=== PATIENT | female | born 2000 | race Caucasian/White ===

== ENCOUNTER → 2025-06-09 | Outpatient (CLI) | payer OTHER, SELFPAY ==
[2025-06-12 19:08] LABS: Chlamydia By Nucleic Acid AMP Negative (Negative); Gonococcus By Nucleic Acid AMP Negative (Negative)
== END | disposition home or self-care (01) ==
LOC: LABSPEC 16:25
PROVIDERS: Visit Provider Advanced Practice Midwife
DX: Z34.90 Encounter for supervision of normal pregnancy, unspecified, unspecified trimester (principal)
CPT/HCPCS: 87077; 87086; 87088; 87186; 87491; 87591

== ENCOUNTER → 2025-07-06 | Outpatient (CLI) | payer OTHER, SELFPAY ==
[2025-07-06 17:27] LABS: Hematocrit 37.1 % (37-47); Hemoglobin 13.2 g/dL (12.0-15.0); Immature Granulocytes Count 0.030 X10^3/uL (0.0-0.0); Mean Corp Hgb Conc 35.6 g/dL (32-36); Mean Corpuscular Volume 89.6 fL (81-99); Mean Platelet Vol. 9.6 fl (6.2-12.0); NRBC Flagged by Analyzer 0 % (0-5); Platelet Count 261 K/mm3 (150-450); RBC Distribution Width CV 12.6 % (11.6-14.6); RBC Distribution Width SD 40.9 fl (35.1-43.9); Red Blood Count 4.14 M/mm3 (4.2-5.4); White Blood Count 9.4 K/mm3 (4.4-11.0)
[2025-07-06 18:00] LABS: HIV Nonreactive (Nonreactive); Hepatitis B Surface Antigen Nonreactive (Nonreactive); Hepatitis C Antibody Nonreactive (Nonreactive); Syphilis Antibodies Nonreactive (Nonreactive)
== END | disposition home or self-care (01) ==
LOC: LAB 16:55
PROVIDERS: Referring Provider Advanced Practice Midwife; Visit Provider Advanced Practice Midwife
DX: Z34.01 Encounter for supervision of normal first pregnancy, first trimester (principal)
CPT/HCPCS: 36415; 83036; 85025; 86703; 86762; 86780; 86803; 86850; 86900; 86901; 87340

== ENCOUNTER → 2025-08-28 | Outpatient (CLI) | payer OTHER, SELFPAY | END | disposition home or self-care (01) | LOC: LABSPEC 16:23 | PROVIDERS: Visit Provider Advanced Practice Midwife | DX: O23.40 Unspecified infection of urinary tract in pregnancy, unspecified trimester (principal); Z3A.00 Weeks of gestation of pregnancy not specified | CPT/HCPCS: 87086; 87088 ==

== ENCOUNTER → 2025-10-20 | Outpatient (CLI) | payer OTHER, SELFPAY ==
--- OUTSIDE RECORDS SUMMARY | 2025-10-20 09:40 | XMS RPT_ITS | CCD ---
Author Organization [facility] Care Team Providers Care Precipitate Washer Name Role Phone Unavailable Primary Care Provider UnavailKelly Montgomery MD Primary Care Provider [phone] ME VICTOR HUGOHRDAThomas Mota Referring Unavailable TAVALLAEE KELLY Svetlana Primary Care Unavailable BRIANEKELLY Attending Unavailable KELLY GAY Attending Unavailable KELLY GAY Primary Care Unavailable ROSELYN SANTOS Attending Unavailable TAVALLAEBerlin KELLY Svetlana Primary Care Unavailable TAVALLYANETE KELLY Svetlana Attending Unavailable TAVALLNICA KELLY M Primary Care Unavailable RAJEEVALLYANETE KELLY M Attending Unavailable TAVAMY KELLY M Primary Care Unavailable TAVALLYANETE KELLY Svetlana Attending Unavailable TAVQIE KELLY Svetlana Primary Care Unavailable Kenya Morrison CNM Attending Provider Dr. Mayra Geiger MD Attending Provider Kenya Morrison CNM Attending Physician [phone] Mayra Geiger MD Attending Physician Kenya Morrison CNM Referring Provider [phone] Dr. Mercedes Fairbanks DO Attending Physician Kenya Morrison Attending Unavailable Kenya Morrison Attending Unavailable Kenya Morrison Referring Unavailable Kenya Morrison Attending Unavailable Mayra Geiger Attending Unavailable Mercedes Fairbanks Attending Unavailjosiah e Kenya Morrison Attending Unavailable Kenya Morrison Attending Unavailable Kenya Morrison Attending Unavailable NO PRIMARY MD KILLIAN Primary Care Unavailable MAYRA GEIGER Attending MAYRA Gonsalves Referring Ole[facility], Primary Care Unavailable MAYRA GEIGER Referring GREGORY Marx Attending Unavailable Medications Current Medications Medication Drug Class(es) Dates Sig (Normalized) Sig (Original) doxylamine succinate 25 mg oral tablet (6 sources) Start: 5 take 1 tablet by mouth every six hours as needed Doxylamine Succinate (Unisom (Doxylamine)) 25 mg tablet Active 25 mg PO EVERY 6 HOURS as needed June 02, 2025 12:00am Complies with drug therapy methylPREDNISolone (3 sources) Corticosteroid Start: 4 methylPREDNISolone (Medrol Dospak) 4 mg tablets Indications: Acute laryngitis , Acute cough , Acute pharyngitis, unspecified etiology Follow schedule on package instructions 21 tablet 03/01/2024 Active Multivit 37-Nrsm-Laxgbu 1-Dha (Pnv-Dha) 27 mg iron-1 mg -300 mg capsule (6 sources) Start: 5 Multivit 02-Zskb-Wwhzjf 1-Dha (Pnv-Dha) 27 mg iron-1 mg -300 mg capsule Active NMA PO June 02, 2025 12:00am Complies with drug therapy Start: 06-02-2025 Start: 06-02-2025 Multivit 47-Ir on-Folate 1-Dha (Pnv-Dha) 27 mg iron-1 mg -300 mg capsule Active NMA PO June 02, 2025 12:00am phentermine hydrochloride 37.5 mg oral tablet (7 sources) Sympathomimetic Amine Anorectic Start: 01-20-2024 End: 05-20-2024 take 31-31.9 tablets by mouth once daily before mealtime phentermine (Adipex-P) 37.5 mg tablet Indications: Class 1 obesity due to excess calories without serious comorbidity with body mass index (BMI) of 31.0 to 31.9 in adult Take 1 tablet (37.5 mg) by mouth once daily in the morning. Take before meals. 30 tablet 04/20/2024 05/20/2024 Active predniSONE 10 mg oral tablet (1 source) Start: 03-16-2024 End: 03-23-2024 predniSONE (Deltasone) 10 mg tablet PLEASE SEE ATTACHED FOR DETAILED DIRECTIONS 03/16/2024 03/23/2024 Discontinued (Side effects) vitamin b6 10 mg oral tablet (6 sources) Start: 06-02-2025 take 1 tablet by mouth once daily Pyridoxine (Vitamin B6) 10 mg tablet Active 10 mg PO daily June 02, 2025 12:00am Complies with drug therapy Completed/Discontinued Medications Medication Drug Class(es) Dates Sig (Normalized) Sig (Original) amoxicillin 875 mg oral tablet (5 sources) Penicillin-class Antibacterial Start: 06-12-2025 End: 06-19-2025 take 1 tablet by mouth twice daily Amoxicillin 875 mg tablet Discontinued 875 mg PO TWICE A DAY 14 7 0 June 12, 2025 12:00am June 18, 2025 12:00am June 19, 2025 12:06am Urinary tract infection in mother during Unspecified infection of urinary tract in , unspecified trimester Start: 03-01-2024 End: 03-08-2024 take 1 capsule by mouth three times daily amoxicillin (Amoxil) 500 mg capsule Indications: Acute laryngitis , Acute cough , Acute pharyngitis, unspecified etiology Take 1 capsule (500 mg) by mouth 3 times a day for 7 days. 21 capsule 03/01/2024 03/08/2024 Active Problems Active Problems Problem Classification Problem Date Documented Da te Episodic/Chronic Hemorrhage during ; abruptio placenta; placenta previa (2 sources) Placenta previa partialis; Translations: [Partial placenta previa NOS or without hemorrhage, unspecified trimester] Onset: 08-28-2025 08-19-2025 Episodic Comment on above: follow up scan neede d at 28 -32 weeks Other aftercare (1 source) Patient encounter status; Translations: [Other intermodal customer service (current) drug therapy] 01-12-2024 Episodic Other complications of (14 sources) Maternal obesity complicating , childbirth and the puerperium, antepartum; Translations: [Obesity complicating , unspecified trimester] 06-02-2025 Chronic Other complications of (1 source) Obesity complicating , unspecified trimester; Translations: [Obesity complicating , unspecified trimester] Onset: 08-28-2025 Chronic Other complications of (8 sources) Urinary tract infection in ; Translations: [Unspecified infection of urinary tract in , unspecified trimester] 06-12-2025 Episodic Comment on above: at NOB. reculture in 4 weeks Other complications of (1 source) Unspecified infection of urinary tract in , unspecified trimester; Translations: [Unspecified infection of urinary tract in , unspecified trimester] Onset: 08-28-2025 Episodic Other lower respiratory disease (1 source) Cough; Translations: [Acute cough] 03-01-2024 Episodic Other nutritional; endocrine; and metabolic disorders (8 sources) Obesity caused by energy imbalance; Translations: [Other obesity due to excess calories] Onset: 02-24-2024 01-12-2024 Chronic Other nutritional; endocrine; and metabolic disorders (2 sources) Other obesity due to excess calories; Translations: [Other obesity due to excess calories] Onset: 01-12-2024 Chronic Other nutritional; endocrine; and metabolic disorders (2 sources) Body mass index (BMI) 31.0-31.9, adult; Translations: [Body mass index (BMI) 31.0-31.9, adult] Onset: 01-12-2024 Chronic Other and delivery including normal (20 sources) Normal ; Translations: [Encounter for supervision of normal , unspecified, unspecified trimester] Onset: 08-28-2025 06-02-2025 Episodic Comment on above: , VICKI 01/12/26, H usband Will elects NIPT with Gen robinson, declines Carrier PRR, , VICKI , Will Other upper respiratory infections (2 sources) Acute laryngitis; Translations: [Acute laryngitis] 03-01-2024 Episodic Residual codes; unclassified (1 source) 16 weeks gestation of ; Translations: [16 weeks gestation of ] Onset: 08-28-2025 Episodic Residual codes; unclassified (1 source) 12 weeks gestation of ; Translations: [12 weeks gestation of ] Onset: 07-06-2025 Episodic Residual codes; unclassified (1 source) 9 weeks gestation of ; Translations: [9 weeks gestation of ] Onset: 06-09-2025 Episodic Screening and history of mental health and substance abuse codes (15 sources) History of clinical finding in subject; Translations: [Personal history of nicotine dependence] Onset: 08-28-2025 06-02-2025 Episodic Comment on above: Quit 6months ago Substance-related disorders (3 sources) Drug-induced insomnia; Translations: [Other psychoactive substance use, unspecified with psychoactive substance-induced sleep disorder] Onset: 03-23-2024 03-23-2024 Episodic Thyroid disorders (7 sources) Goiter; Translations: [Iodine-deficiency related diffuse (endemic) goiter] Onset: 01-12-2024 01-12-2024 Chronic Unclassified (2 sources) Illness; Translations: [Illness] Onset: 03-01-2024 Past or Other Problems Problem Classification Problem Date Documented Da te Episodic/Chronic Other aftercare (2 sources) Other custodial (current) drug therapy; Translations: [Other intermodal customer service (current) drug therapy] Onset: 01-12-2024 Episodic Unclassified (7 sources) Onset: 01-12-2024 Resolved: 04-20-2024 01-12-2024 Results Test Name Value Interpretation Reference Range Facility Urine Cultureon 08-30-2025 URC Below infection level. Mixed Gram Positive Organisms Beason Count <1000 MIXC Mixed contaminants. Submit a new specimen if indicated. Normal [facility] Comment on above: Performed By: #### M 100.6050 #### [facility] [address] [place], [place], [id number] Print Designer Office Visit Reporton 08-28-2025 Print Designer Office Visit Report [facility] [address], [address] [place] [address] OFFICE VISIT Date of Service: 08/28/25 MR#: [id number] Acct: [id number] Name: HANDY MOREJON Rep #: [id number] : 2000 Provider: KASSANDRA Santamaria ams Age/Sex: 24/F [place] [facility] [place]: Signed Intake Vital Signs 06/09/25 15:06 07/06/25 15:51 08/03/25 16:03 08/28/25 14:35 08/28/25 14:36 Height 5 ft 5 in 5 ft 5 in 5 ft 5 in 5 ft 5 in 5 ft 5 in Weight: 191 lb 5 oz BMI 31.8 BP 128/84 H Intake Visit Reasons: 21wk ob Baby Formula Mixer Required: No Is patient in pain?: No Allergies No Known Allergies Allergy (Verified 08/28/25 14:35) Medications ???Medication ???Instructions ???Recorded ???Confirmed ???Type doxylamine succinate 25 mg tablet 25 mg PO Q6H PRN 06/02/25 5 History (Unisom (doxylamine)) multivitamin no.47-iron fum 27 cap PO 06/02/25 08/28/25 History mg-folate no.1 1 mg-dha 300 mg capsule (PNV-DHA) pyridoxine (vitamin B6) 10 mg 10 mg PO QDAY 06/02/25 08/28/25 Hi story tablet Last Menstrual Period: 04/07/25 Zika: Zika virus screening: Negative : No PFSH PFSH Surgical History S/P LASIK (laser assisted in situ keratomileusis) of both eyes [place] teeth extracted Social History adopted: No household members: spouse housing: house current occupational status: employed 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/hazards: No pets and animals: Yes (2) pets and animals: dog(s) history of recent travel: Yes (- April) out of state: Yes out of country: No sexually active: Yes Smoking Status: Former smoker Electronic Cigarette Use: with nicotine alcohol intake: current alcohol intake frequency: holidays/special occasions only details: not while substance use type: does not use well-balanced diet: daily or most days caffeine: No eating out: 1-3 times/week during the past year weight has: remained stable what type of physical activity do you participate in: walking frequency: 1-2 times per week duration: 15-30 minutes/day brant/congregation: [employer]orationist seatbelt use: always do you feel safe at home: Yes additional social history: Will- [place] History 1 Elective abortions Hx Para 0 Spontaneous abortions Hx # Term Pregnancies Ectopic pregnancies Hx # Pregnancies Multiple births # of living children HPI 21wk ob Details: HANDY MOREJON is a 24 year old who presents for routine OB visit. OB Visit VICKI Calculator Estimated Delivery Date Method Current WG Current Estimate 03/20/26 LMP (Certain) 20w 3d Other Estimates 01/13/26 Ultrasound #1 20w 2d Expected Delivery Route/Plan Labor Preferences- CB/BF classes: [] labor support person: [] labor intervention preferences: [] pain management options preferred: [] cut cord/dad catch: [] : [] PP control planned: [] discussed possible routes of delivery and associated risks: [] special requests: [] Specific Issue/Plans Covid status: [] Flu vaccine: [] Tdap vaccine: [] Rhogam: [] LARC form signed: [] Problem list reviewed and updated with the most current plan of care details and appropriate orders placed. Relevant counseling for the gestational age provided. Continue routine care and follow up unless otherwise noted in visit notes/problem list details Initial Weight: 191 lb Date -???-???-???-???-?? ?-???-???-???-???-? ??-???-???- EGA Weight BP Urine Prot -???-???-???-???-?? ?-???-???-???-???-? ??-???-???- Glucose FHR FuHt Pres Dilation -???-???-???-???-?? ?-???-???-???-???-? ??-???-???- Effaced St Visit Note 06/09/25 -???-???-???-???-?? ?-???-???-???-???-? ??-???-???- 9w 0d 191 lb 2 oz (+2 oz) 127/82 -???-???-???-???-?? ?-???-???-???-???-? ??-???-???- 179 -???-???-???-???-?? ?-???-???-???-???-? ??-???-???- KW- CRL 5.12 cons with dates. accepts NIPT and carrier 07/06/25 -???-???-???-???-?? ?-???-???-???-???-? ??-???-???- 12w 6d 186 lb 4 oz (-4 lb 12 oz) 131/83 Negative -???-???-???-???-?? ?-???-???-???-???-? ??-???-???- Negative 160 -???-???-???-???-?? ?-???-???-???-???-? ??-???-???- SM- no vb cr amping 08/03/25 -???-???-???-???-?? ?-???-???-???-???-? ??-???-???- 16w 6d 188 lb 4 oz (-2 lb 12 oz) 123/75 Negative -???-???-???-???-?? ?-???-???-???-???-? ??-???-???- Negative 150 -???-???-???-???-?? ?-???-???-???-???-? ??-???-???- JV- no cramp ing or spotting, declined flu shot. 08/28/25 -???-???-???-???-?? ?-???-???-???-???-? ??-???-???- 20w 3d 191 lb 5 oz (+5 oz) 128/84 Negative -???-???-???-???-?? ?-???-???-???-???-? ??-???-???- Negative 1 (more content not included)... Normal [facility] - Chemistry and C hemistry - challengeOrdered By: Mercedes Lavon on 08-03-2025 Glucose Ql (U) Negative [facility] - UrinalysisOrder ed By: Mercedesyadiel Doll on 08-03-2025 Protein Ql (U) Negative [facility] Print Designer Office Visit Reporton 08-03-2025 Print Designer Office Visit Report [facility]'s [address], [address] [place] [address] OFFICE VISIT Date of Service: 08/03/25 MR#: [id number] Acct: [id number] Name: HANDY MOREJON Rep #: [id number] : 2000 Provider: Dr. Mercedes Juarez DO Age/Sex: 24/F [place] [facility] [place]: Signed Intake Vital Signs 06/09/25 15:06 07/06/25 15:51 08/03/25 16:03 08/03/25 16:03 Height 5 ft 5 in 5 ft 5 in 5 ft 5 in 5 ft 5 in Weight: 186 lb 4 oz 188 lb 4 oz BMI 30.9 31.3 BP 131/83 H 123/75 H Intake Visit Reasons: 17 WK OB Baby Formula Mixer Required: No Is patient in pain?: No Allergies No Known Allergies Allergy (Verified 08/03/25 16:03) Medications ???Medication ???Instructions ???Recorded ???Confirmed ???Type doxylamine succinate 25 mg tablet 25 mg PO Q6H PRN 06/02/25 5 History (Unisom (doxylamine)) multivitamin no.47-iron fum 27 cap PO 06/02/25 08/03/25 History mg-folate no.1 1 mg-dha 300 mg capsule (PNV-DHA) pyridoxine (vitamin B6) 10 mg 10 mg PO QDAY 06/02/25 08/03/25 Hi story tablet Last Menstrual Period: 04/07/25 Zika: Zika virus screening: Negative : No PFSH PFSH Surgical History S/P LASIK (laser assisted in situ keratomileusis) of both eyes [place] teeth extracted Social History adopted: No household members: spouse housing: house current occupational status: employed 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/hazards: No pets and animals: Yes (2) pets and animals: dog(s) history of recent travel: Yes (- April) out of state: Yes out of country: No sexually active: Yes Smoking Status: Former smoker Electronic Cigarette Use: with nicotine alcohol intake: current alcohol intake frequency: holidays/special occasions only details: not while substance use type: does not use well-balanced diet: daily or most days caffeine: No eating out: 1-3 times/week during the past year weight has: remained stable what type of physical activity do you participate in: walking frequency: 1-2 times per week duration: 15-30 minutes/day brant/congregation: [employer] seatbelt use: always do you feel safe at home: Yes additional social history: Will- [place] History 1 Elective abortions Hx Para 0 Spontaneous abortions Hx # Term Pregnancies Ectopic pregnancies Hx # Pregnancies Multiple births # of living children HPI 17 WK OB Details: HANDY MOREJON is a 24 year old who presents for routine OB visit. OB Visit VICKI Calculator Estimated Delivery Date Method Current WG Current Estimate 01/12/26 LMP (Certain) 16w 6d Other Estimates 01/13/26 Ultrasound #1 16w 5d Expected Delivery Route/Plan Labor Preferences- CB/BF classes: [] labor support person: [] labor intervention preferences: [] pain management options preferred: [] cut cord/dad catch: [] : [] PP control planned: [] discussed possible routes of delivery and associated risks: [] special requests: [] Specific Issue/Plans Covid status: [] Flu vaccine: [] Tdap vaccine: [] Rhogam: [] LARC form signed: [] Problem list reviewed and updated with the most current plan of care details and appropriate orders placed. Relevant counseling for the gestational age provided. Continue routine care and follow up unless otherwise noted in visit notes/problem list details Initial Weight: 191 lb Date -???-???-???-???-?? ?-???-???-???-???-? ??-???-???- EGA Weight BP Urine Prot -???-???-???-???-?? ?-???-???-???-???-? ??-???-???- Glucose FHR FuHt Pres Dilation -???-???-???-???-?? ?-???-???-???-???-? ??-???-???- Effaced St Visit Note 06/09/25 -???-???-???-???-?? ?-???-???-???-???-? ??-???-???- 9w 0d 191 lb 2 oz (+2 oz) 127/82 -???-???-???-???-?? ?-???-???-???-???-? ??-???-???- 179 -???-???-???-???-?? ?-???-???-???-???-? ??-???-???- KW- CRL 5.12 cons with dates. accepts NIPT and carrier 07/06/25 -???-???-???-???-?? ?-???-???-???-???-? ??-???-???- 12w 6d 186 lb 4 oz (-4 lb 12 oz) 131/83 Negative -???-???-???-???-?? ?-???-???-???-???-? ??-???-???- Negative 160 -???-???-???-???-?? ?-???-???-???-???-? ??-???-???- SM- no vb cr amping 08/03/25 -???-???-???-???-?? ?-???-???-???-???-? ??-???-???- 16w 6d 188 lb 4 oz (-2 lb 12 oz) 123/75 Negative -???-???-???-???-?? ?-???-???-???-???-? ??-???-???- Negative 150 -???-???-???-???-?? ?-???-???-???-???-? ??-???-???- JV- no cramp ing or spotting, declined flu shot. ACOG First Trimester First Trimester: Desire for , Alcohol, Tobacco Cessation, Illicit/Recreationa l Drug/Substance Use, Intimate Partner Viole (more content not included)... Normal [facility] Absolute lymphocyte countOrd ered By: Kenya Morrison on 07-06-2025 Lymphocytes Auto (Unsp spec) [#/Vol] 1.91 10*3/uL 0.83-4.51 [facility] Absolute neutrophil countOrd ered By: Kenya Morrison on 07-06-2025 Neutrophils (Bld) [#/Vol] 6.7 10*3/uL 2.0-7.7 [facility] Automated lymphocyte count a s percentage of total leukocytesOrdered By: Kenya Morrison on 07-06-2025 Lymphocytes/100 WBC Auto (Unsp spec) 20.3 % 19-41 [facility] Basophil percentageOrdered B y: Kenya Morrison on 07-06-2025 Basophils/100 WBC (Bld) 0.3 % 0-1 [facility] CBC W/Diff, Automatedon 06-26 Absolute Lymph 1.91 X10 3/uL Normal 0.83-4.51 [facility] Comment on above: Performed By: #### L 100.0100, L3890.6006, L3890.6102, L3890.6301, BTS, L900.0098, L501.9985, L509.8002, L509.4006 #### [facility] [address] [place], [address] Absolute Neut 6.7 X10 3/uL Normal 2.0-7.7 [facility] Comment on above: Performed By: #### L 100.0100, L3890.6006, L3890.6102, L3890.6301, BTS, L900.0098, L501.9985, L509.8002, L509.4006 #### [facility] [address] [place], [address] Basophils/100 WBC (Bld) 0.3 % Normal 0-1 [facility] Comment on above: Performed By: #### L 100.0100, L3890.6006, L3890.6102, L3890.6301, BTS, L900.0098, L501.9985, L509.8002, L509.4006 #### [facility] [address] [place], [address] Eosinophils/100 WBC (Bld) 0.7 % Normal 0-5 [facility] Comment on above: Performed By: #### L 100.0100, L3890.6006, L3890.6102, L3890.6301, BTS, L900.0098, L501.9985, L509.8002, L509.4006 #### [facility] [address] [place], [address] Erythrocyte distribution width (RBC) [Ratio] 12.6 % Normal 11.6-14.6 [facility] Comment on above: Performed By: #### L 100.0100, L3890.6006, L3890.6102, L3890.6301, BTS, L900.0098, L501.9985, L509.8002, L509.4006 #### [facility] [address] [place], [address] Hematocrit (Bld) [Volume fraction] 37.1 % Normal 37-47 [facility] Comment on above: Performed By: #### L 100.0100, L3890.6006, L3890.6102, L3890.6301, BTS, L900.0098, L501.9985, L509.8002, L509.4006 #### [facility] [address] [place], [address] Hemoglobin (Bld) [Mass/Vol] 13.2 g/dL Normal 12.0-15.0 [facility] Comment on above: Performed By: #### L 100.0100, L3890.6006, L3890.6102, L3890.6301, BTS, L900.0098, L501.9985, L509.8002, L509.4006 #### [facility] [address] [place], [address] IG% 0.300 Normal 0.0-0.9 [facility] Comment on above: Result Comment: IG% - Immature Granulocytes (promyelocytes, myelocytes and metamyelocytes) > 1% indicates that a LEFT SHIFT is Present. Performed By: #### L 100.0100, L3890.6006, L3890.6102, L3890.6301, BTS, L900.0098, L501.9985, L509.8002, L509.4006 #### [facility] [address] [place], [address] Lymphocytes/100 WBC (Bld) 20.3 % Normal 19-41 [facility] Comment on above: Performed By: #### L 100.0100, L3890.6006, L3890.6102, L3890.6301, BTS, L900.0098, L501.9985, L509.8002, L509.4006 #### [facility] [address] [place], [address] MCH (RBC) [Entitic mass] 31.9 pg Normal 27.0-32.0 [facility] Comment on above: Performed By: #### L 100.0100, L3890.6006, L3890.6102, L3890.6301, BTS, L900.0098, L501.9985, L509.8002, L509.4006 #### [facility] [address] [place], [address] MCHC (RBC) [Mass/Vol] 35.6 g/dL Normal 32-36 [facility] Comment on above: Performed By: #### L 100.0100, L3890.6006, L3890.6102, L3890.6301, BTS, L900.0098, L501.9985, L509.8002, L509.4006 #### [facility] [address] [place], [address] MCV (RBC) [Entitic vol] 89.6 fL Normal 81-99 [facility] Comment on above: Performed By: #### L 100.0100, L3890.6006, L3890.6102, L3890.6301, BTS, L900.0098, L501.9985, L509.8002, L509.4006 #### [facility] [address] [place], [address] Monocytes/100 WBC (Bld) 6.6 % Normal 0-10 [facility] Comment on above: Performed By: #### L 100.0100, L3890.6006, L3890.6102, L3890.6301, BTS, L900.0098, L501.9985, L509.8002, L509.4006 #### [facility] [address] [place], [address] Neutrophils/100 WBC (Bld) 71.8 % High 47-70 [facility] Comment on above: Performed By: #### L 100.0100, L3890.6006, L3890.6102, L3890.6301, BTS, L900.0098, L501.9985, L509.8002, L509.4006 #### [facility] [address] [place], [address] Nucleated RBC (Bld) [#/Vol] 0 10*3/uL Normal 0-5 [facility] Comment on above: Performed By: #### L 100.0100, L3890.6006, L3890.6102, L3890.6301, BTS, L900.0098, L501.9985, L509.8002, L509.4006 #### [facility] [address] [place], [address] Platelet mean volume (Bld) [Entitic vol] 9.6 fL Normal 6.2-12.0 [facility] Comment on above: Performed By: #### L 100.0100, L3890.6006, L3890.6102, L3890.6301, BTS, L900.0098, L501.9985, L509.8002, L509.4006 #### [facility] [address] [place], [address] Platelets (Bld) [#/Vol] 261 10*3/uL Normal 150-450 [facility] Comment on above: Performed By: #### L 100.0100, L3890.6006, L3890.6102, L3890.6301, BTS, L900.0098, L501.9985, L509.8002, L509.4006 #### [facility] [address] [place], [address] RBC (Bld) [#/Vol] 4.14 10*6/uL Low 4.2-5.4 [facility] Comment on above: Performed By: #### L 100.0100, L3890.6006, L3890.6102, L3890.6301, BTS, L900.0098, L501.9985, L509.8002, L509.4006 #### [facility] [facility] [address] [place], [address] RDW SD 40.9 fl Normal 35.1-43.9 [facility] Comment on above: Performed By: #### L 100.0100, L3890.6006, L3890.6102, L3890.6301, BTS, L900.0098, L501.9985, L509.8002, L509.4006 #### [facility] [address] [place], [address] WBC (Bld) [#/Vol] 9.4 10*3/uL Normal 4.4-11.0 [facility] Comment on above: Performed By: #### L 100.0100, L3890.6006, L3890.6102, L3890.6301, BTS, L900.0098, L501.9985, L509.8002, L509.4006 #### [facility] [address] [facility] [place], [address] Eosinophil percentageOrdered By: Kenya Morrison on 07-06-2025 Eosinophils/100 WBC (Bld) 0.7 % 0-5 [facility] Erythrocyte distribution wid th ratioOrdered By: Kenya Morrison on 07-06-2025 Erythrocyte distribution width (RBC) [Ratio] 12.6 % 11.6-14.6 [facility] Erythrocyte distribution wid th standard deviationOrdered By: Kenya Morrison on 07-06-2025 Erythrocyte distribution width (RBC) [Ratio] 40.9 fl 35.1-43.9 [facility] HIVon 07-06-2025 HIV Non-Reactive Normal Nonreactive [facility] Comment on above: Result Comment: Non- Reactive Reactive Repeatedly reactive samples must be confirmed according to CDC recommended confirmatory algorithms. The subresults for either HIVAG or AHIV can be used as an aid in the selection of the confirmation algorithm for reactive samples. Send out specimens with Reactive results to [facility] for confirmation. Order the HIV antibody detection and differentiation: lc#[id number] Performed By: #### L 100.0100, L3890.6006, L3890.6102, L3890.6301, BTS, L900.0098, L501.9985, L509.8002, L509.4006 ####[facility] [address] [place], [place], [phone] Hematocrit Auto (Bld) [Volum e fraction]Ordered By: Kenya Morrison on 07-06-2025 Hematocrit (Bld) [Volume fraction] 37.1 % 37-47 [facility] Hemoglobin A1con 07-06-2025 HbA1c (Bld) [Mass fraction] 4.9 % Normal <=5.6 [facility] Comment on above: Result Comment: Norm al < 5.7 % Prediabetic 5.7 - 6.4 % Diabetic >or= 6.5 % Please note range changes. Performed By: #### L 100.0100, L3890.6006, L3890.6102, L3890.6301, BTS, L900.0098, L501.9985, L509.8002, L509.4006 #### [facility] [address] [facility]. [place], [place], [id number] [phone] Hemoglobin A1c percentageOrd ered By: Kenya Morrison on 07-06-2025 HbA1c (Bld) [Mass fraction] 4.9 % <5.7 [facility] Comment on above: Normal < 5.7 % Predi abetic 5.7 - 6.4 % Diabetic >or= 6.5 % Please note range changes. Hemoglobin measurementOrdere d By: Kenya Morrison on 07-06-2025 Hemoglobin (Bld) [Mass/Vol] 13.2 g/dL 12.0-15.0 [facility] Hepatitis C Antibodyon 07-06 Hepatitis C Ab Non-Reactive Normal Nonreactive [facility] Comment on above: Result Comment: Reac tive: Presumptive evidence of antibodies to HCV. Follow CDC recommendations for supplemental testing. Non-Reactive: Antibodies to HCV were not detected; does not exclude the possibility of exposure to HCV Reactive Results are presumptive evidence of antibodies to HCV. Follow CDC recommendations for supplemental testing. Order confirmation testing: HCV Quant by PCR testing - HCVPCR #[id number] Non Reactive: < 0.8 Equivocal: >/= 0.8 to < 1.0 Reactive: >/= 1.0 The [facility] requires that a reactive/equivocal HCV antibody result be sent out for confirmation. HCV Quant by PCR testing. Performed By: #### L 100.0100, L3890.6006, L3890.6102, L3890.6301, BTS, L900.0098, L501.9985, L509.8002, L509.4006 ####[facility] [address] [facility]. [place], [place], [id number] Immature granulocytes/100 WB C Auto (Bld)Ordered By: Kenya Morrison on 07-06-2025 Immature granulocytes/100 WBC (Bld) 0.300 % 0.0-0.9 [facility] Comment on above: IG% - Immature Granu locytes (promyelocytes, myelocytes and metamyelocytes) > 1% indicates that a LEFT SHIFT is Present. L3890.6102on 07-06-2025 HEP B Surf Ag Non-Reactive Normal Nonreactive [facility] Comment on above: Result Comment: Reac tive: Presumptive evidence of HBV. Repeatedly reactive samples must be confirmed using a neutralization test ([employer]ys HBsAg Confirmatory Test) Non-Reactive: HBsAg not detected; does not exclude the possibility of exposure to HBV Performed By: #### L 100.0100, L3890.6006, L3890.6102, L3890.6301, BTS, L900.0098, L501.9985, L509.8002, L509.4006 ####[facility] [address] [facility]. [place], [place], [address] L509.4006on 07-06-2025 Rubella IgG REAC Normal Nonreactive [facility] Comment on above: Result Comment: Anti body Result: Interpretation Non-Reactive: Non-Immune Reactive: Immune The following results were obtained with the [employer]ys Rubella IgG assay. Results from assays of other manufacturers cannot be used interchangeably. Performed By: #### L 100.0100, L3890.6006, L3890.6102, L3890.6301, BTS, L900.0098, L501.9985, L509.8002, L509.4006 ####[facility] [address] [place], [address] Laboratory - Chemistry and C hemistry - challengeOrdered By: Mayra Geiger on 07-06-2025 Glucose Ql (U) Negative [facility] Laboratory - Microbiology an d Antimicrobial susceptibilityOrdered By: Kenya Morrison on 07-06-2025 HBV surface Ag Ql (S) Non-Reactive Nonreactive [facility] Comment on above: Reactive: Presumptiv e evidence of HBV. Repeatedly reactive samples must be confirmed using a neutralization test ([employer]ys HBsAg Confirmatory Test)Non-Reactive: HBsAg not detected; does not exclude the possibility of exposure to HBV Laboratory - UrinalysisOrder ed By: Mayra Geiger on 07-06-2025 Protein Ql (U) Negative [facility] MCV (mean corpuscular volume ) determinationOrdered By: Kenya Morrison on 07-06-2025 MCV (RBC) [Entitic vol] 89.6 fL 81-99 [facility] Mean corpuscular hemoglobin (MCH) determinationOrdered By: Kenya Morrison on 07-06-2025 MCH (RBC) [Entitic mass] 31.9 pg 27.0-32.0 [facility] Mean corpuscular hemoglobin concentration (MCHC) determinationOrdered By: Kenya Morrison on 07-06-2025 MCHC (RBC) [Mass/Vol] 35.6 g/dL 32-36 [facility] Mean platelet volume determi nationOrdered By: Kenya Morrison on 07-06-2025 Platelet mean volume (Bld) [Entitic vol] 9.6 fL 6.2-12.0 [facility] Monocyte percentageOrdered B y: Kenya Morrison on 07-06-2025 Monocytes/100 WBC (Bld) 6.6 % 0-10 [facility] NATERAon 07-06-2025 NATURA SEE SCANNED REPORT Normal [facility] Comment on above: Order Comment: Comme nts: NIPT with Gender Performed By: #### L 100.0100, L3890.6006, L3890.6102, L3890.6301, BTS, L900.0098, L501.9985, L509.8002, L509.4006 #### [facility] [address] [place], [address] Neutrophil percentageOrdered By: Kenya Morrison on 07-06-2025 Neutrophils/100 WBC (Bld) 71.8 % High 47-70 [facility] No Panel InformationOrdered By: Kenya Morrison on 07-06-2025 HIV (1&2) Antibody Non-Reactive Nonreactive [facility] Comment on above: Non-ReactiveReactive Repeatedly reactive samples must be confirmed according to CDC recommended confirmatory algorithms. The subresults for either HIVAG or AHIV can be used as an aid in the selection of the confirmation algorithm for reactive samples.Send out specimens with Reactive results to [facility] for confirmation.Order the HIV antibody detection and differentiation: #[id number] Nucleated red blood cell per centageOrdered By: Kenya Morrison on 07-06-2025 Nucleated RBC/100 WBC (Bld) [Ratio] 0 % 0-5 [facility] Print [facility]er Office Visit Reporton 07-06-2025 Print Designer Office Visit Report [facility]'[address], [address] [place] [address] OFFICE VISIT Date of Service: 07/06/25 MR#: [id number] Acct: [id number] Name: HANDY MOREJON Rep #: [id number] : 2000 Provider: Dr. Mayra houston MD Age/Sex: 24/F Location: [facility] Status: Signed Intake Vital Signs 06/09/25 15:06 07/06/25 15:51 Height 5 ft 5 in 5 ft 5 in Weight: 186 lb 4 oz BMI 30.9 BP 131/83 H Intake Visit Reasons: 13 WK OB Baby Formula Mixer Required: No Is patient in pain?: No Feel stressed/tense/nerv ous/anxious/difficu lty sleeping: not at all Allergies No Known Allergies Allergy (Unverified 07/06/25 15:53) Medications ???Medication ???Instructions ???Recorded ???Confirmed ???Type doxylamine succinate 25 mg tablet 25 mg PO Q6H PRN 06/02/25 5 History (Unisom (doxylamine)) multivitamin no.47-iron fum 27 cap PO 06/02/25 07/06/25 History mg-folate no.1 1 mg-dha 300 mg capsule (PNV-DHA) pyridoxine (vitamin B6) 10 mg 10 mg PO QDAY 06/02/25 07/06/25 Hi story tablet Last Menstrual Period: 04/07/25 Zika: Zika virus screening: Negative : No PFSH PFSH Surgical History S/P LASIK (laser assisted in situ keratomileusis) of both eyes [place] teeth extracted Social History adopted: No household members: spouse housing: house current occupational status: employed 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/hazards: No pets and animals: Yes (2) pets and animals: dog(s) history of recent travel: Yes (- April) out of state: Yes out of country: No sexually active: Yes Smoking Status: Former smoker Electronic Cigarette Use: with nicotine alcohol intake: current alcohol intake frequency: holidays/special occasions only details: not while substance use type: does not use well-balanced diet: daily or most days caffeine: No eating out: 1-3 times/week during the past year weight has: remained stable what type of physical activity do you participate in: walking frequency: 1-2 times per week duration: 15-30 minutes/day brant/congregation: [employer] seatbelt use: always do you feel safe at home: Yes additional social history: Will- [place] History 1 Elective abortions Hx Para 0 Spontaneous abortions Hx # Term Pregnancies Ectopic pregnancies Hx # Pregnancies Multiple births # of living children HPI 13 WK OB Details: HANDY MOREJON is a 24 year old who presents for routine OB visit. OB Visit VICKI Calculator Estimated Delivery Date Method Current WG Current Estimate 01/12/26 LMP (Certain) 12w 6d Other Estimates 01/13/26 Ultrasound #1 12w 5d Expected Delivery Route/Plan Labor Preferences- CB/BF classes: [] labor support person: [] labor intervention preferences: [] pain management options preferred: [] cut cord/dad catch: [] : [] PP control planned: [] discussed possible routes of delivery and associated risks: [] special requests: [] Specific Issue/Plans Covid status: [] Flu vaccine: [] Tdap vaccine: [] Rhogam: [] LARC form signed: [] Problem list reviewed and updated with the most current plan of care details and appropriate orders placed. Relevant counseling for the gestational age provided. Continue routine care and follow up unless otherwise noted in visit notes/problem list details Initial Weight: 191 lb Date -???-???-???-???-?? ?-???-???-???-???-? ??-???-???- EGA Weight BP Urine Prot -???-???-???-???-?? ?-???-???-???-???-? ??-???-???- Glucose FHR FuHt Pres Dilation -???-???-???-???-?? ?-???-???-???-???-? ??-???-???- Effaced St Visit Note 06/09/25 -???-???-???-???-?? ?-???-???-???-???-? ??-???-???- 9w 0d 191 lb 2 oz (+2 oz) 127/82 -???-???-???-???-?? ?-???-???-???-???-? ??-???-???- 179 -???-???-???-???-?? ?-???-???-???-???-? ??-???-???- KW- CRL 5.12 cons with dates. accepts NIPT and carrier 07/06/25 -???-???-???-???-?? ?-???-???-???-???-? ??-???-???- 12w 6d 186 lb 4 oz (-4 lb 12 oz) 131/83 Negative -???-???-???-???-?? ?-???-???-???-???-? ??-???-???- Negative 160 -???-???-???-???-?? ?-???-???-???-???-? ??-???-???- SM- no vb cr amping ACOG First Trimester First Trimester: Desire for , Alcohol, Tobacco Cessation, Illicit/Recreationa l Drug/Substance Use, Intimate Partner Violence, Barriers to care, Unstable Housing, Communication Barriers, Environmental/Work Hazards, Anticipated Course of Care, Toxoplasmosis Precations, Use of Any medications, Sexual activity, Exercise, Dental Care, Sauna/Hot tub use, Seat Belt use, Childbirth classes/Hospital facilities, Andre (more content not included)... Normal [facility] Platelet countOrdered By: Vidal Morrison on 07-06-2025 Platelets (Bld) [#/Vol] 261 10*3/uL 150-450 [facility] RBC Auto (Bld) [#/Vol]Ordere d By: Kenya Morirson on 07-06-2025 RBC (Bld) [#/Vol] 4.14 10*6/uL Low 4.2-5.4 [facility] Syphilis Antibodieson 2024 Syphilis Abs Non-Reactive Normal Nonreactive [facility] Comment on above: Performed By: #### L 100.0100, L3890.6006, L3890.6102, L3890.6301, BTS, L900.0098, L501.9985, L509.8002, L509.4006 ####[facility] [address] [place], [address] Type AND Screenon 07-06-2025 Ab SCREEN GEL Negative Normal [facility] Comment on above: Order Comment: PN Performed By: #### L 100.0100, L3890.6006, L3890.6102, L3890.6301, BTS, L900.0098, L501.9985, L509.8002, L509.4006 #### [facility] [address] [place], [address] White blood cell (WBC) count Ordered By: Kenya Morrison on 07-06-2025 WBC (Bld) [#/Vol] 9.4 10*3/uL 4.4-11.0 [facility] Chlamydia/GC PAVEL aptimaon CHLAMY,NUC ACID Negative Normal Negative [facility] Comment on above: Performed By: #### M 100.2200, L7000.1800 #### [facility] [address] [place], [place], [address] GC BY NUC ACID Negative Normal Negative [facility] Comment on above: Result Comment: Perf ormed at: =G - [facility] [address] [id number] Tip Puncher: Camille Thompson MD, Phone: [phone] Performed By: #### M 100.2200, L7000.1800 #### [facility] [address] [place], [address] Urine Cultureon 06-11-2025 [facility] Streptococcus mitis/ oralis Beason Count >100,000 Streptococcus mitis/ oralis: REACTION Ampicillin Islt HUGH <=0.25 Penicillin G Islt HUGH <=0.06 S Cefotaxime Islt HUGH <=0.12 S cefTRIAXone Islt HUGH <=0.12 S Linezolid Islt HUGH <=2 S Vancomycin Islt HUGH <=0.12 S Normal [facility] Comment on above: Performed By: #### M 100.2200, L7000.1800 #### [facility] [address] [place], [address] Chlamydia trachomatis rRNA d etection by probe and target amplification methodOrdered By: Kenya Morrison on 06-09-2025 C. trachomatis rRNA PAVEL+probe Ql (Unsp spec) Negative Negative [facility] Neisseria gonorrhoeae nuclei c acid detection by amplified probe techniqueOrdered By: Kenya Morrison on 06-09-2025 N. gonorrhoeae DNA PAVEL+probe Ql (Unsp spec) Negative Negative [facility] Comment on above: Performed at: =[address] [id number] Director: Camille Thompson MD, Phone: [phone] Print Designer Office Visit Reporton 06-09-2025 Print Designer Office Visit Report [facility] [address], [address] [place] [address] OFFICE VISIT Date of Service: 06/09/25 MR#: [id number] Acct: [id number] Name: HANDY MOREJON Rep #: [id number] : 2000 Provider: KASSANDRA Santamaria ams Age/Sex: 24/F [place] [facility] [place]: Signed Intake Vital Signs 06/02/25 13:58 06/09/25 15:06 Height 5 ft 5 in 5 ft 5 in Weight: 191 lb 2 oz BMI 31.8 BP 127/82 H Intake Visit Reasons: *NEW* NOB LMP 04/14, VICKI 01/12 Chief Complaint: new ob Baby Formula Mixer Required: No Is patient in pain?: No Allergies No Known Allergies Allergy (Unverified 06/09/25 15:08) Medications ???Medication ???Instructions ???Recorded ???Confirmed ???Type doxylamine succinate 25 mg tablet 25 mg PO Q6H PRN 06/02/25 5 History (Unisom (doxylamine)) multivitamin no.47-iron fum 27 cap PO 06/02/25 06/09/25 History mg-folate no.1 1 mg-dha 300 mg capsule (PNV-DHA) pyridoxine (vitamin B6) 10 mg 10 mg PO QDAY 06/02/25 06/09/25 Hi story tablet Last Menstrual Period: 04/07/25 : Yes PFSH PFSH Surgical History S/P LASIK (laser assisted in situ keratomileusis) of both eyes [place] teeth extracted Social History adopted: No household members: spouse housing: house current occupational status: employed 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/hazards: No pets and animals: Yes (2) pets and animals: dog(s) history of recent travel: Yes (- April) out of state: Yes out of country: No sexually active: Yes Smoking Status: Former smoker Electronic Cigarette Use: with nicotine alcohol intake: current alcohol intake frequency: holidays/special occasions only details: not while substance use type: does not use well-balanced diet: daily or most days caffeine: No eating out: 1-3 times/week during the past year weight has: remained stable what type of physical activity do you participate in: walking frequency: 1-2 times per week duration: 15-30 minutes/day brant/congregation: [employer] seatbelt use: always do you feel safe at home: Yes additional social history: Will- [place] History 1 Elective abortions Hx Para 0 Spontaneous abortions Hx # Term Pregnancies Ectopic pregnancies Hx # Pregnancies Multiple births # of living children HPI *NEW* NOB LMP 04/14, VICKI 01/12 Details: HANDY MOREJON is a 24 year old who presents for New OB visit. OB Visit VICKI Calculator Estimated Delivery Date Method Current WG Current Estimate 01/12/26 LMP (Certain) 9w 0d Other Estimates 01/13/26 Ultrasound #1 8w 6d Estimated Due Date: 01/12/26 Expected Delivery Route/Plan Labor Preferences- CB/BF classes: [] labor support person: [] labor intervention preferences: [] pain management options preferred: [] cut cord/dad catch: [] : [] PP control planned: [] discussed possible routes of delivery and associated risks: [] special requests: [] Specific Issue/Plans Covid status: [] Flu vaccine: [] Tdap vaccine: [] Rhogam: [] LARC form signed: [] Problem list reviewed and updated with the most current plan of care details and appropriate orders placed. Relevant counseling for the gestational age provided. Continue routine care and follow up unless otherwise noted in visit notes/problem list details Initial Weight: 191 lb Date -???-???-???-???-?? ?-???-???-???-???-? ??-???-???- EGA Weight BP Urine Prot -???-???-???-???-?? ?-???-???-???-???-? ??-???-???- Glucose FHR FuHt Pres Dilation -???-???-???-???-?? ?-???-???-???-???-? ??-???-???- Effaced St Visit Note 06/09/25 -???-???-???-???-?? ?-???-???-???-???-? ??-???-???- 9w 0d 191 lb 2 oz (+2 oz) 127/82 -???-???-???-???-?? ?-???-???-???-???-? ??-???-???- 179 -???-???-???-???-?? ?-???-???-???-???-? ??-???-???- KW- CRL 5.12 cons with dates. accepts NIPT and carrier Menstrual History Last Menstrual Period: 04/07/25 Reported LMP: definite Normal amount/duration: No (heavier and longer than normal) Frequency in days: 28-30 On hormonal BC at conception: No hCG+: 05/10/25 Antepartum Record Genetic Screening: Congenital Heart Defect: Partner (heart murmur-resloved), Neural Tube Defect: Other, Hemoglobinopathy Or Carrier: Other, Cystic Fibrosis: Other, Chromosome Abnormality: Other, Marcos-Sachs: Other, Hemophilia: Other, Intellectual Disability/Autism: Other, Recurrent Loss/Stillbirth: Other, Other Structural Defect: Other, Other Genetic Disease: Other and Maternal Metabolic Disorder: Other Infection History: Live with someone with TB or Exposed to TB: No, Patient or Partner has hi (more content not included)... Normal [facility] Urine cultureOrdered By: Shawn Morrison on 06-09-2025 Bacteria identified Cx Nom (U) Streptococcus mitis/ oralis Abnormal [facility] Office Visit Reporton 2024 Office Visit Report [facility] [address] [place] [address] OFFICE VISIT Date of Service: 06/02/25 MR#: [id number] Acct: [id number] Patient: HANDY MOREJON Rep #: [id number] : 2000 Provider: KASSANDRA Santamaria ams Age/Sex: 24/F Location: [facility] Status: Signed reviewed VS and HCG result of visit. Intake Vital Signs 06/02/25 13:58 Height 5 ft 5 in Weight: 188 lb 6 oz BMI 31.3 BP 126/60 H Blood Pressure Location Rt brachial Position Sitting Intake Visit Reasons: PNOB Vitals Education Baby Formula Mixer Required: No Accompanied by: Is patient in pain?: No Allergies No Known Allergies Allergy (Unverified 06/02/25 13:59) Medications ???Medication ???Instructions ???Recorded ???Confirmed ???Type doxylamine succinate 25 mg tablet 25 mg PO Q6H PRN 06/02/25 5 History (Unisom (doxylamine)) multivitamin no.47-iron fum 27 cap PO 06/02/25 06/02/25 History mg-folate no.1 1 mg-dha 300 mg capsule (PNV-DHA) pyridoxine (vitamin B6) 10 mg 10 mg PO QDAY 06/02/25 06/02/25 Hi story tablet Is last menstrual period known: Yes Last menstrual period: 04/07/25 Post menopausal: No Patient : Yes Nurse's Note: Pt here for secondary amenorrhea. Vitals WNL. PNOB questions completed. Problem list, allergies, and medications updated. First trimester ACOG education completed. Assessment and Plan Assessment and Plan Orders: Orders CBC W/Diff, Automated 06/02/25 Z34.90 - Encounter for supervision of normal , unspecified, unspecified trimester Type Screen 06/02/25 Z34.90 - Encounter for supervision of normal , unspecified, unspecified trimester Rubella IgG 06/02/25 Z34.90 - Encounter for supervision of normal , unspecified, unspecified trimester Hepatitis C Antibody 06/02/25 Z34.90 - Encounter for supervision of normal , unspecified, unspecified trimester Hepatitis B Surface Antigen 06/02/25 Z34.90 - Encounter for supervision of normal , unspecified, unspecified trimester Culture, Urine 06/02/25 Z34.90 - Encounter for supervision of normal , unspecified, unspecified trimester Syphilis Antibodies 06/02/25 Z34.90 - Encounter for supervision of normal , unspecified, unspecified trimester Chlamydia/GC PAVEL aptima 06/02/25 Z34.90 - Encounter for supervision of normal , unspecified, unspecified trimester HIV 06/02/25 Z34.90 - Encounter for supervision of normal , unspecified, unspecified trimester Hemoglobin A1c 06/02/25 O99.210 - Obesity complicating , unspecified trimester, Z34.90 - Encounter for supervision of normal , unspecified, unspecified trimester MACIE 06/02/25 Z34.90 - Encounter for supervision of normal , unspecified, unspecified trimester 06/04/25 0529 Date Kenya Morrison CNM Cosigner Signature: Date (if applicable) CC: Normal [facility] CONFIRMATION OPIATE/OPIOID/B ESTELLE PRESCRIPTION COMPLIANCEon 01-12-2024 1-Hydroxymidazolam Confirm (U) [Mass/Vol] <25 Normal <25 [facility] Comment on above: Order Comment: The p erformance characteristics of this test has been validated by the individual laboratory site where testing is performed. It has not been cleared or approved by the FDA. However the FDA has determined that such clearance or approval is not necessary. Our Laboratory is certified under the Clinical Laboratory Improvement Amendments of 1988 (CLIA) as qualified to perform high complexity clinical laboratory testing. Performed By: #### D ANGEOPC #### LILLIANA Amanda ([id number]) [facility] ([facility]) [address] [place] [id number] 1-Dmdcondllz-6,5-Dimethy l-3,3-Diphenylpyrrolidin e (EDDP) Confirm (U) [Mass/Vol] <25 Normal <25 [facility] Comment on above: Order Comment: The p erformance characteristics of this test has been validated by the individual laboratory site where testing is performed. It has not been cleared or approved by the FDA. However the FDA has determined that such clearance or approval is not necessary. Our Laboratory is certified under the Clinical Laboratory Improvement Amendments of 1988 (CLIA) as qualified to perform high complexity clinical laboratory testing. Performed By: #### D SBOPC #### LILLIANA Amanda ([id number]) [facility] ([facility]) [address] [place] [address] [phone] 6-Monoacetylmorphine (6-FATMATA) Confirm (U) [Mass/Vol] <25 Normal <25 [facility] Comment on above: Order Comment: The p erformance characteristics of this test has been validated by the individual laboratory site where testing is performed. It has not been cleared or approved by the FDA. However the FDA has determined that such clearance or approval is not necessary. Our Laboratory is certified under the Clinical Laboratory Improvement Amendments of 1988 (CLIA) as qualified to perform high complexity clinical laboratory testing. Performed By: #### D SBOPC #### LILLIANA Amanda ([id number]) [facility] ([facility]) [address] [place] [address] 06705 7-Aminoclonazepam Confirm (U) [Mass/Vol] <25 Normal <25 [facility] Comment on above: Order Comment: The p erformance characteristics of this test has been validated by the individual laboratory site where testing is performed. It has not been cleared or approved by the FDA. However the FDA has determined that such clearance or approval is not necessary. Our Laboratory is certified under the Clinical Laboratory Improvement Amendments of 1988 (CLIA) as qualified to perform high complexity clinical laboratory testing. Performed By: #### D ANGEOPC #### LILLIANA Amanda ([id number]) [facility] ([facility]) [address] [place] [address] [phone] Alpha hydroxyalprazolam Confirm (U) [Mass/Vol] <25 Normal <25 [facility] Comment on above: Order Comment: The p erformance characteristics of this test has been validated by the individual laboratory site where testing is performed. It has not been cleared or approved by the FDA. However the FDA has determined that such clearance or approval is not necessary. Our Laboratory is certified under the Clinical Laboratory Improvement Amendments of 1988 (CLIA) as qualified to perform high complexity clinical laboratory testing. Performed By: #### D ANGEOPC #### LILLIANA Amanda ([id number]) [facility] ([facility]) [address] [place] [address] 17559 ALPRAZolam Confirm (U) [Mass/Vol] <25 Normal <25 [facility] Comment on above: Order Comment: The p erformance characteristics of this test has been validated by the individual laboratory site where testing is performed. It has not been cleared or approved by the FDA. However the FDA has determined that such clearance or approval is not necessary. Our Laboratory is certified under the Clinical Laboratory Improvement Amendments of 1988 (CLIA) as qualified to perform high complexity clinical laboratory testing. Performed By: #### D ANGEOPC #### LILLIANA Amanda ([id number]) [facility] ([facility]) [address] [place] [address] 93323 chlordiazePOXIDE Confirm (U) [Mass/Vol] <25 Normal <25 [facility] Comment on above: Order Comment: The p erformance characteristics of this test has been validated by the individual laboratory site where testing is performed. It has not been cleared or approved by the FDA. However the FDA has determined that such clearance or approval is not necessary. Our Laboratory is certified under the Clinical Laboratory Improvement Amendments of 1988 (CLIA) as qualified to perform high complexity clinical laboratory testing. Performed By: #### D ANGEOPC #### LILLIANA Amanda ([id number]) [facility] ([facility]) [id number] [place] [address] [phone] clonazePAM Confirm (U) [Mass/Vol] <25 Normal <25 [facility] Comment on above: Order Comment: The p erformance characteristics of this test has been validated by the individual laboratory site where testing is performed. It has not been cleared or approved by the FDA. However the FDA has determined that such clearance or approval is not necessary. Our Laboratory is certified under the Clinical Laboratory Improvement Amendments of 1988 (CLIA) as qualified to perform high complexity clinical laboratory testing. Performed By: #### D ANGEOPC #### LILLIANA Amanda ([id number]) [facility] ([facility]) [address] [place] [address] [phone] Codeine Confirm (U) [Mass/Vol] <50 Normal <50 [facility] Comment on above: Order Comment: The p erformance characteristics of this test has been validated by the individual laboratory site where testing is performed. It has not been cleared or approved by the FDA. However the FDA has determined that such clearance or approval is not necessary. Our Laboratory is certified under the Clinical Laboratory Improvement Amendments of 1988 (CLIA) as qualified to perform high complexity clinical laboratory testing. Performed By: #### D SBOPC #### LILLIANA Amanda ([id number]) [facility] ([facility]) [address] [place] [address] 96164 diazePAM Confirm (U) [Mass/Vol] <25 Normal <25 [facility] Comment on above: Order Comment: The p erformance characteristics of this test has been validated by the individual laboratory site where testing is performed. It has not been cleared or approved by the FDA. However the FDA has determined that such clearance or approval is not necessary. Our Laboratory is certified under the Clinical Laboratory Improvement Amendments of 1988 (CLIA) as qualified to perform high complexity clinical laboratory testing. Performed By: #### D SBOPC #### LILLIANA Amanda ([id number]) [facility] ([facility]) [id number] [place] [address] 06900 fentaNYL Confirm (U) [Mass/Vol] <2.5 Normal <2.5 [facility] Comment on above: Order Comment: The p erformance characteristics of this test has been validated by the individual laboratory site where testing is performed. It has not been cleared or approved by the FDA. However the FDA has determined that such clearance or approval is not necessary. Our Laboratory is certified under the Clinical Laboratory Improvement Amendments of 1988 (CLIA) as qualified to perform high complexity clinical laboratory testing. Performed By: #### D SBOPC #### LILLIANA FOSSTZER L ([id number]) [facility] ([facility]) [address] [place] [address] 14956 HYDROcodone cutoff Confirm (U) [Mass/Vol] <25 Normal <25 [facility] Comment on above: Order Comment: The p erformance characteristics of this test has been validated by the individual laboratory site where testing is performed. It has not been cleared or approved by the FDA. However the FDA has determined that such clearance or approval is not necessary. Our Laboratory is certified under the Clinical Laboratory Improvement Amendments of 1988 (CLIA) as qualified to perform high complexity clinical laboratory testing. Performed By: #### D SBOPC #### LILLIANA FOSSTZER L ([id number]) [facility] ([facility]) [address] [place] [address] 08029 HYDROmorphone Confirm (U) [Mass/Vol] <25 Normal <25 [facility] Comment on above: Order Comment: The p erformance characteristics of this test has been validated by the individual laboratory site where testing is performed. It has not been cleared or approved by the FDA. However the FDA has determined that such clearance or approval is not necessary. Our Laboratory is certified under the Clinical Laboratory Improvement Amendments of 1988 (CLIA) as qualified to perform high complexity clinical laboratory testing. Performed By: #### D SBOPC #### LILLIANA ELMOTZER L ([id number]) [facility] ([facility]) [id number] [place] [address] 90349 LORazepam Confirm (U) [Mass/Vol] <25 Normal <25 [facility] Comment on above: Order Comment: The p erformance characteristics of this test has been validated by the individual laboratory site where testing is performed. It has not been cleared or approved by the FDA. However the FDA has determined that such clearance or approval is not necessary. Our Laboratory is certified under the Clinical Laboratory Improvement Amendments of 1988 (CLIA) as qualified to perform high complexity clinical laboratory testing. Performed By: #### D SBOPC #### LILLIANA FOSSTZER L ([id number]) [facility] ([facility]) [address] [place] [address] 05674 Methadone Confirm (U) [Mass/Vol] <25 Normal <25 [facility] Comment on above: Order Comment: The p erformance characteristics of this test has been validated by the individual laboratory site where testing is performed. It has not been cleared or approved by the FDA. However the FDA has determined that such clearance or approval is not necessary. Our Laboratory is certified under the Clinical Laboratory Improvement Amendments of 1988 (CLIA) as qualified to perform high complexity clinical laboratory testing. Performed By: #### D SBOPC #### LILLIANA TORRESER L ([id number]) [facility] ([facility]) [address] [place] [address] 64191 Midazolam Confirm (U) [Mass/Vol] <25 Normal <25 [facility] Comment on above: Order Comment: The p erformance characteristics of this test has been validated by the individual laboratory site where testing is performed. It has not been cleared or approved by the FDA. However the FDA has determined that such clearance or approval is not necessary. Our Laboratory is certified under the Clinical Laboratory Improvement Amendments of 1988 (CLIA) as qualified to perform high complexity clinical laboratory testing. Performed By: #### D SBOPC #### LILLIANA ELMOTZER L ([id number]) [facility] ([facility]) [address] [place] [address] 66876 Morphine Confirm (U) [Mass/Vol] <50 Normal <50 [facility] Comment on above: Order Comment: The p erformance characteristics of this test has been validated by the individual laboratory site where testing is performed. It has not been cleared or approved by the FDA. However the FDA has determined that such clearance or approval is not necessary. Our Laboratory is certified under the Clinical Laboratory Improvement Amendments of 1988 (CLIA) as qualified to perform high complexity clinical laboratory testing. Performed By: #### D SBOPC #### LILLIANA SCHMOTZER L ([id number]) [facility] ([facility]) [address] [place] [address] [phone] Nordiazepam Confirm (U) [Mass/Vol] <25 Normal <25 [facility] Comment on above: Order Comment: The p erformance characteristics of this test has been validated by the individual laboratory site where testing is performed. It has not been cleared or approved by the FDA. However the FDA has determined that such clearance or approval is not necessary. Our Laboratory is certified under the Clinical Laboratory Improvement Amendments of 1988 (CLIA) as qualified to perform high complexity clinical laboratory testing. Performed By: #### D SBOPC #### LILLIANA Amanda ([id number]) [facility] ([facility]) [address] [place] [address] 93326 Norfentanyl Confirm (U) [Mass/Vol] <2.5 Normal <2.5 [facility] Comment on above: Order Comment: The p erformance characteristics of this test has been validated by the individual laboratory site where testing is performed. It has not been cleared or approved by the FDA. However the FDA has determined that such clearance or approval is not necessary. Our Laboratory is certified under the Clinical Laboratory Improvement Amendments of 1988 (CLIA) as qualified to perform high complexity clinical laboratory testing. Performed By: #### D SBOPC #### LILLIANA DONIS L ([id number]) [facility] ([facility]) [address] [place] [address] 08140 Norhydrocodone Confirm (U) [Mass/Vol] <25 Normal <25 [facility] Comment on above: Order Comment: The p erformance characteristics of this test has been validated by the individual laboratory site where testing is performed. It has not been cleared or approved by the FDA. However the FDA has determined that such clearance or approval is not necessary. Our Laboratory is certified under the Clinical Laboratory Improvement Amendments of 1988 (CLIA) as qualified to perform high complexity clinical laboratory testing. Performed By: #### D SBOPC #### LILLIANA DONIS L ([id number]) [facility] ([facility]) [address] [place] [address] 45894 Noroxycodone Confirm (U) [Mass/Vol] <25 Normal <25 [facility] Comment on above: Order Comment: The p erformance characteristics of this test has been validated by the individual laboratory site where testing is performed. It has not been cleared or approved by the FDA. However the FDA has determined that such clearance or approval is not necessary. Our Laboratory is certified under the Clinical Laboratory Improvement Amendments of 1988 (CLIA) as qualified to perform high complexity clinical laboratory testing. Performed By: #### D SBOPC #### LILLIANA Amanda ([id number]) [facility] ([facility]) [address] [place] [address] 55064 Nortramadol (U) [Mass/Vol] <50 Normal <50 [facility] Comment on above: Order Comment: The p erformance characteristics of this test has been validated by the individual laboratory site where testing is performed. It has not been cleared or approved by the FDA. However the FDA has determined that such clearance or approval is not necessary. Our Laboratory is certified under the Clinical Laboratory Improvement Amendments of 1988 (CLIA) as qualified to perform high complexity clinical laboratory testing. Performed By: #### D SBOPC #### LILLIANA Amanda ([id number]) [facility] ([facility]) [address] [place] [address] 77947 Oxazepam Confirm (U) [Mass/Vol] <25 Normal <25 [facility] Comment on above: Order Comment: The p erformance characteristics of this test has been validated by the individual laboratory site where testing is performed. It has not been cleared or approved by the FDA. However the FDA has determined that such clearance or approval is not necessary. Our Laboratory is certified under the Clinical Laboratory Improvement Amendments of 1988 (CLIA) as qualified to perform high complexity clinical laboratory testing. Performed By: #### D SBOPC #### LILLIANA Amanda ([id number]) [facility] ([facility]) [address] [place] [address] 21097 oxyCODONE Confirm (U) [Mass/Vol] <25 Normal <25 [facility] Comment on above: Order Comment: The p erformance characteristics of this test has been validated by the individual laboratory site where testing is performed. It has not been cleared or approved by the FDA. However the FDA has determined that such clearance or approval is not necessary. Our Laboratory is certified under the Clinical Laboratory Improvement Amendments of 1988 (CLIA) as qualified to perform high complexity clinical laboratory testing. Performed By: #### D SBOPC #### LILLIANA DONIS L ([id number]) [facility] ([facility]) [id number] [place] [address] 69183 oxyMORphone Confirm (U) [Mass/Vol] <25 Normal <25 [facility] Comment on above: Order Comment: The p erformance characteristics of this test has been validated by the individual laboratory site where testing is performed. It has not been cleared or approved by the FDA. However the FDA has determined that such clearance or approval is not necessary. Our Laboratory is certified under the Clinical Laboratory Improvement Amendments of 1988 (CLIA) as qualified to perform high complexity clinical laboratory testing. Performed By: #### D SBOPC #### LILLIANA DONIS L ([id number]) [facility] ([facility]) [address] [place] [address] 22817 Temazepam Confirm (U) [Mass/Vol] <25 Normal <25 [facility] Comment on above: Order Comment: The p erformance characteristics of this test has been validated by the individual laboratory site where testing is performed. It has not been cleared or approved by the FDA. However the FDA has determined that such clearance or approval is not necessary. Our Laboratory is certified under the Clinical Laboratory Improvement Amendments of 1988 (CLIA) as qualified to perform high complexity clinical laboratory testing. Performed By: #### D SBOPC #### LILLIANA DONIS L ([id number]) [facility] ([facility]) [id number] [place] [address] 76320 traMADol Confirm (U) [Mass/Vol] <50 Normal <50 [facility] Comment on above: Order Comment: The p erformance characteristics of this test has been validated by the individual laboratory site where testing is performed. It has not been cleared or approved by the FDA. However the FDA has determined that such clearance or approval is not necessary. Our Laboratory is certified under the Clinical Laboratory Improvement Amendments of 1988 (CLIA) as qualified to perform high complexity clinical laboratory testing. Performed By: #### D SBOPC #### LILLIANA FOSSTZER L ([id number]) [facility] ([facility]) [id number] [place] [address] 53599 Zolpidem (U) [Mass/Vol] <25 Normal <25 [facility] Comment on above: Order Comment: The p erformance characteristics of this test has been validated by the individual laboratory site where testing is performed. It has not been cleared or approved by the FDA. However the FDA has determined that such clearance or approval is not necessary. Our Laboratory is certified under the Clinical Laboratory Improvement Amendments of 1988 (CLIA) as qualified to perform high complexity clinical laboratory testing. Performed By: #### D SBOPC #### LILLIANA Amanda ([id number]) [facility] ([facility]) [address] [place], [place] [id number] Zolpidem Confirm (U) [Mass/Vol] <25 Normal <25 [facility] Comment on above: Order Comment: The p erformance characteristics of this test has been validated by the individual laboratory site where testing is performed. It has not been cleared or approved by the FDA. However the FDA has determined that such clearance or approval is not necessary. Our Laboratory is certified under the Clinical Laboratory Improvement Amendments of 1988 (CLIA) as qualified to perform high complexity clinical laboratory testing. Performed By: #### D SBOPC #### LILLIANA Amanda ([id number]) [facility] ([facility]) [address] [place], [place] [id number] SCREEN OPIATE/OPIOID/BENZO P RESCRIPTION COMPLIANCEon 01-12-2024 Amphetamines Screen Ql (U) Negative Normal Presumptive Negative [facility] Comment on above: Result Comment: CUTO FF LEVEL: 500 NG/ML Cross-reactivity has been reported with high concentrations of the following drugs: buproprion, chloroquine, chlorpromazine, ephedrine, mephentermine, fenfluramine, phentermine, phenylpropanolamine, pseudoephedrine, and propranolol. Performed By: #### D RBOP #### LILLIANA Amanda ([id number]) [facility] ([facility]) [address] [place] [address] 23736 Barbiturates Screen Ql (U) Negative Normal Presumptive Negative [facility] Comment on above: Result Comment: CUTO FF LEVEL: 200 NG/ML Performed By: #### D RBOP #### LILLIANA Amanda ([id number]) [facility] ([facility]) [address] [place] [address] Benzoylecgonine Screen Ql (U) Negative Normal Presumptive Negative [facility] Comment on above: Result Comment: CUTO FF LEVEL: 150 NG/ML Performed By: #### D RBOP #### LILLIANA ELMOTZER L ([id number]) [facility] ([facility]) [address] [place] [address] 45754 Cannabinoids Screen Ql (U) Negative Normal Presumptive Negative [facility] Comment on above: Result Comment: CUTO FF LEVEL: 50 NG/ML Performed By: #### D RBOP #### LILLIANA SCHMOTZER L ([id number]) [facility] ([facility]) [address] [place] [address] 30711 Creatinine (U) [Mass/Vol] 134.0 mg/dL Normal 20.0-320.0 [facility] Comment on above: Result Comment: A ur ine creatinine result >= 20 mg/dL is considered valid without suspicion of dilution. Samples with results below this range will automatically reflex to specific gravity testing to verify specimen integrity. Performed By: #### D RBOP #### LILLIANA ELMOTZER L ([id number]) [facility] ([facility]) [address] [place] [address] 26810 Phencyclidine Ql (U) Negative Normal Presump tive Negative [facility] Comment on above: Result Comment: CUTO FF LEVEL: 25 NG/ML Cross-reactivity has been reported with dextromethorphan. Performed By: #### D RBOP #### LILLIANA ELMOWOOER L ([id number]) [facility] ([facility]) [address] [place], [place] [id number] US THYROIDon 01-12-2024 US THYROID Interpreted By: Fred Navarro, STUDY: US THYROID; 01/12/2024 1:11 pm INDICATION: Signs/Symptoms:THYR OMEGALY. COMPARISON: None. ACCESSION NUMBER(S): [id number] ORDERING CLINICIAN: KELLY GAY TECHNIQUE: Multiple ultrasonographic images of the thyroid gland and surrounding tissues were obtained. FINDINGS: PARENCHYMA: Homogeneous SIZE: RIGHT LOBE: 4.8 x 1.5 x 1.2 cm LEFT LOBE: 4.6 x 0.9 x 1.4 cm ISTHMUS: 3 mm AP No nodules are seen on either side. IMPRESSION: 1. Normal thyroid ultrasound. Signed by: Fred Navarro 01/12/2024 2:51 PM Dictation workstation: [id number] [facility] US Thyroid glandon 1. Normal thyroid ultrasound. Signed by: Fred Navarro 01/12/2024 2:51 PM Dictation workstation: [id number] MMODAL Interpreted By: Fred Navarro, STUDY: US THYROID; 01/12/2024 1:11 pm INDICATION: Signs/Symptoms:THYR OMEGALY. COMPARISON: None. ACCESSION NUMBER(S): [id number] ORDERING CLINICIAN: KELLY GAY TECHNIQUE: Multiple ultrasonographic images of the thyroid gland and surrounding tissues were obtained. FINDINGS: PARENCHYMA: Homogeneous SIZE: RIGHT LOBE: 4.8 x 1.5 x 1.2 cm LEFT LOBE: 4.6 x 0.9 x 1.4 cm ISTHMUS: 3 mm AP No nodules are seen on either side. [facility] MMODAL Fred Navarro MD - 01/12/2024 Interpreted By: Fred Navarro, STUDY: US THYROID; 01/12/2024 1:11 pm INDICATION: Signs/Symptoms:THYR OMEGALY. COMPARISON: None. ACCESSION NUMBER(S): [id number] ORDERING CLINICIAN: KELLY GAY TECHNIQUE: Multiple ultrasonographic images of the thyroid gland and surrounding tissues were obtained. FINDINGS: PARENCHYMA: Homogeneous SIZE: RIGHT LOBE: 4.8 x 1.5 x 1.2 cm LEFT LOBE: 4.6 x 0.9 x 1.4 cm ISTHMUS: 3 mm AP No nodules are seen on either side. IMPRESSION: 1. Normal thyroid ultrasound. Signed by: Fred Navarro 01/12/2024 2:51 PM Dictation workstation: [id number] [facility] [facility] Work Phone: Radiology Study observation (narrative) [facility] Work Phone: US Thyroid glandOrdered By: Fred Navarro on 01-12-2024 [facility] Work Phone: GROUP A STREP SCREEN-CULTURE on 03-27-2020 GROUP A STREP SCREEN-CULTURE RESULTS CALLED RB TO KEE , 03/29/2020 15:51 PATIENT: HANDY HUDDLESTON LOCATION: [facility] BILL#: [id number] : 4 AGE: SEX: F ORDERED BY: GIOVANY BUCKNER SOURCE: Throat/Pharynx COLLECTED: 03/27/20 08:04 ANTIBIOTICS AT PATSY.: RECEIVED : 03/27/20 23:48 SITE: THROAT R E S U L T S GROUP A STREP SCREEN-CULTURE FINAL 03/29/20 15:22 ISOLATE2 : Group A streptococcus 3+ Normal [facility] Comment on above: Performed By: #### G ASCR #### [facility] [address] [facility] [place] [address] Vital Signs Date Time Vital Sign Value Performing Clinician Faci lity 08-03-2025 16:03-0400 Body height 165.1 cm Kenya Morrison CNM Work Phone: [facility] 08-03-2025 16:03-0400 Body mass index (BMI) [Ratio] 31.3 kg/m2 Kenya MONTESM Work Phone: [facility] 08-03-2025 16:03-0400 Body weight 85.38 kg Kenya MONTESM Work Phone: [facility] 08-03-2025 16:03-0400 Diastolic blood pressure 75 mm[Hg] Kenya MONTESM Work Phone: [facility] 08-03-2025 16:03-0400 Systolic blood pressure 123 mm[Hg] Kenya MONTESM Work Phone: [facility] 07-06-2025 15:51-0400 Body height 165.1 cm Kenya MONTESM Work Phone: [facility] 07-06-2025 15:51-0400 Body mass index (BMI) [Ratio] 30.9 kg/m2 Kenya MONTESM Work Phone: [facility] 07-06-2025 15:51-0400 Body weight 84.48 kg Kenya Morrison CNM Work Phone: [facility] 07-06-2025 15:51-0400 Diastolic blood pressure 83 mm[Hg] Kenya Morrison CNM Work Phone: [facility] 07-06-2025 15:51-0400 Systolic blood pressure 131 mm[Hg] Kenya Morrison CNM Work Phone: [facility] 06-09-2025 15:06-0400 Body height 165.1 cm Kenya Morrison CNM Work Phone: [facility] 06-09-2025 15:06-0400 Body mass index (BMI) [Ratio] 31.8 kg/m2 Kenya Morrison CNM Work Phone: [facility] 06-09-2025 15:06-0400 Body weight 86.69 kg Kenya Morrison CNM Work Phone: [facility] 06-09-2025 15:06-0400 Diastolic blood pressure 82 mm[Hg] Kenya Morrison CNM Work Phone: [facility] 06-09-2025 15:06-0400 Systolic blood pressure 127 mm[Hg] Kenya Morrison CNM Work Phone: [facility] 06-02-2025 13:58-0400 Body mass index (BMI) [Ratio] 31.3 kg/m2 Kenya Morrison CNM Work Phone: [facility] 06-02-2025 13:58-0400 Body weight 85.44 kg Kenya Morrison CNM Work Phone: [facility] 06-02-2025 13:58-0400 Diastolic blood pressure 60 mm[Hg] Kenya MONTESM Work Phone: [facility] 06-02-2025 13:58-0400 Systolic blood pressure 126 mm[Hg] Kenya Morrison CNM Work Phone: [facility] 04-20-2024 11:49-0400 Body height 165.1 cm Kelly Gay MD Work Phone: [facility] 04-20-2024 11:49-0400 Body mass index (BMI) [Ratio] 27.62 kg/m2 Kelly Gay MD Work Phone: [facility] 04-20-2024 11:49-0400 Body weight 75.3 kg Kelly Gay MD Work Phone: [facility] 04-20-2024 11:49-0400 Diastolic blood pressure 79 mm[Hg] Kelly Gay MD Work Phone: [facility] 04-20-2024 11:49-0400 Heart rate 91 /min Kelly Gay MD Work Phone: [facility] 04-20-2024 11:49-0400 Systolic blood pressure 125 mm[Hg] Kelly Gay MD Work Phone: [facility] 03-23-2024 10:03-0400 Body height 165.1 cm Kelly Gay MD Work Phone: [facility] 03-23-2024 10:03-0400 Body mass index (BMI) [Ratio] 28.21 kg/m2 Kelly Gay MD Work Phone: [facility] 03-23-2024 10:03-0400 Body weight 76.89 kg Kelly Gay MD Work Phone: [facility] 03-23-2024 10:03-0400 Diastolic blood pressure 86 mm[Hg] Kelly Gay MD Work Phone: [facility] 03-23-2024 10:03-0400 Heart rate 101 /min Kelly Gay MD Work Phone: [facility] 03-23-2024 10:03-0400 Systolic blood pressure 120 mm[Hg] Kelly Gay MD Work Phone: [facility] 02-24-2024 11:24-0400 Body mass index (BMI) [Ratio] 28.62 kg/m2 Kelly Gay MD Work Phone: [facility] 02-24-2024 11:24-0400 Body weight 78.02 kg Kelly Gay MD Work Phone: [facility] 02-24-2024 11:24-0400 Diastolic blood pressure 82 mm[Hg] Kelly Gay MD Work Phone: [phone] [place] [address] 02-24-2024 11:24-0400 Heart rate 105 /min Kelly Gay MD Work Phone: [facility] 02-24-2024 11:24-0400 SaO2% (BldA) [Mass fraction] 96 % Kelly Gay MD Work Phone: [facility] 02-24-2024 11:24-0400 Systolic blood pressure 118 mm[Hg] Kelly Gay MD Work Phone: [facility] 01-12-2024 09:05-0400 Body height 165.1 cm Kelly Gay MD Work Phone: [facility] 01-12-2024 09:05-0400 Body mass index (BMI) [Ratio] 31.28 kg/m2 Kelly Gay MD Work Phone: [facility] 01-12-2024 09:05-0400 Body weight 85.28 kg Kelly Gay MD Work Phone: [facility] 01-12-2024 09:05-0400 Diastolic blood pressure 86 mm[Hg] Kelly Gay MD Work Phone: [facility] 01-12-2024 09:05-0400 Heart rate 89 /min Kelly Gay MD Work Phone: [facility] 01-12-2024 09:05-0400 Systolic blood pressure 115 mm[Hg] Kelly Gay MD Work Phone: [facility] Encounters Encounter Date Encounter Type Care Provider Facility Start: 08-31-2025 End: 08-31-2025 ambulatory NO PRIMARY CARE [facility] Start: 08-28-2025 ambulatory Kenya Morrison Facility :[facility] Start: 08-28-2025 End: 08-28-2025 ambulatory Kenya Morrison Facility:[facility] Start: 08-17-2025 End: 08-17-2025 ambulatory NO PRIMARY CARE [facility] Start: 08-03-2025 End: 08-03-[address] Mercedes Fairbanks DO -[facility] Work Phone: Start: 08-03-2025 End: 08-03-2025 ambulatory Kenya Morrison CNM Work Phone: -[facility] Start: 07-06-2025 End: 07-06-2025 ambulatory Kenya Morrison CNM Work Phone: -Laboratory Start: 07-06-2025 End: 07-06-2025 Patient encounter procedure Kenya Morrison CNM -Laboratory Work Phone: Start: 07-06-2025 End: 07-06-[address] Mayra Geiger MD -[facility] Work Phone: Start: 07-06-2025 End: 07-06-2025 ambulatory Mayra Geiger -[facility] Start: 07-06-2025 End: 07-06-2025 ambulatory Kenya Morrison Facility:[facility] Start: 06-09-2025 End: 06-09-2025 ambulatory Kenya Morrison CNM Work Phone: -Laboratory Specimen Start: 06-09-2025 End: 06-09-2025 Patient encounter procedure Kenya Morrison CNM -Laboratory Specimen Work Phone: Start: 06-09-2025 End: 06-09-2025 Patient encounter procedure Kenya Prince [facility] Work Phone: Start: 06-09-2025 End: 06-09-[address] [facility] Start: 06-09-2025 End: 06-09-2025 ambulatory Kenya Prince Facility:[facility] Start: 06-02-2025 End: 06-02-2025 Patient encounter procedure Kenya Morrison [facility] -[facility] Work Phone: Start: 06-02-2025 End: 06-02-[address] [facility] Start: 05-24-2024 End: 05-24-2024 ambulatory [facility] Start: 04-20-2024 End: 04-20-2024 ambulatory [facility] Start: 04-20-2024 End: 04-20-2024 Office outpatient visit 15 minutes Kelly Gay MD Work Phone: [facility] Comment on above: Class 1 obesity due to excess calories without serious comorbidity with body mass index (BMI) of 31.0 to 31.9 in adult Start: 03-23-2024 End: 03-23-2024 ambulatory [facility] Start: 03-23-2024 End: 03-23-2024 Office outpatient visit 15 minutes Kelly Gay MD Work Phone: [facility] Comment on above: Drug-induced insomni a (Multi) (Primary Dx); Class 1 obesity due to excess calories without serious comorbidity with body mass index (BMI) of 31.0 to 31.9 in adult Start: 03-01-2024 End: 03-01-2024 Office outpatient visit 25 minutes Roselyn Santos MD Work Phone: [facility] Comment on above: Acute laryngitis (Pr imary Dx); Acute cough; Acute pharyngitis, unspecified etiology Start: 03-01-2024 End: 03-01-2024 ambulatory [facility] Start: 02-24-2024 End: 02-24-2024 Office outpatient visit 10 minutes Kelly Gay MD Work Phone: [facility] Comment on above: Class 1 obesity due to excess calories without serious comorbidity with body mass index (BMI) of 31.0 to 31.9 in adult (Primary Dx) Start: 02-24-2024 End: 02-24-2024 ambulatory [facility] Start: 01-12-2024 End: 01-13-2024 ambulatory [facility] Start: 01-12-2024 End: 01-12-2024 Subsequent hospital visit by physician [address] Comment on above: Thyromegaly Start: 01-12-2024 End: 01-12-2024 Office outpatient new 45 minutes Kelly Gay MD Work Phone: [facility] Comment on above: Class 1 obesity due to excess calories without serious comorbidity with body mass index (BMI) of 31.0 to 31.9 in adult (Primary Dx); Thyromegaly; Medication management Start: 01-12-2024 End: 01-12-2024 ambulatory [facility] Procedures Date Procedure Procedure Detail Performing Clinician Start: 07-06-2025 Hepatitis C antibody measurement Kenya Morrison CNM Work Phone: Comment on above: Reactive: Presumptiv e evidence of antibodies to HCV. Follow CDC recommendations for supplemental testing.Non-Reactive: Antibodies to HCV were not detected; does not exclude the possibility of exposure to HCVReactive Results are presumptive evidence of antibodies to HCV. Follow CDC recommendations for supplemental testing.Order confirmation testing: HCV Quant by PCR testing - HCVPCR #[id number] Non Reactive: < 0.8 Equivocal: >/= 0.8 to < 1.0 Reactive: >/= 1.0The CDC requires that a reactive/equivocal HCV antibody result be sent out for confirmation. HCV Quant by PCR testing. Start: 07-06-2025 Procedure Kenya caba CNM Work Phone: Start: 09-11-2025 Rubella IgG measurement Kenya Morrison CNM Work Phone: Comment on above: Antibody Result: Int erpretationNon-Reactive: Non- ImmuneReactive: ImmuneThe following results were obtained with the [employer] Rubella IgG assay. Results from assays of other manufacturers cannot be used interchangeably. Start: 07-06-2025 Serologic test for syphilis Kenya Morrison CN Work Phone: Start: 06-09-2025 Urine culture Kenya burgos CN Work Phone: Start: 01-12-2024 US THYROID [facility] Start: 01-12-2024 Us soft tissue head & neck real time imge docm Kelly Gay MD Work Phone: Plan of Treatment Date Care Activity Detail Author Start: 2052 Zoster Vaccines (1 of 2) Zoste r Vaccines (1 of 2) [facility] Start: 06-26-2024 Influenza vaccination Influenz a Vaccine (Season Ended) [facility] Start: 05-24-2024 End: 05-24-2024 Patient encounter procedure 05/24/2024 9:15 AM EDT Office Visit [facility] [address] [place] [id number] Kelly Gay MD [address] [place] [address] [facility] Start: 04-20-2024 End: 04-20-2024 Patient encounter procedure 04/20/2024 11:45 AM EDT Office Visit [facility] [address] [place] [phone] Kelly Gay MD [address] [place] [address] [facility] Start: 03-23-2024 End: 03-23-2024 Patient encounter procedure 03/23/2024 10:00 AM EDT Office Visit [facility] [address] [place] [id number] Kelly Gay MD [address] [place] [address] [facility] Start: 02-01-2024 End: 02-01-2024 Patient encounter procedure 02/01/2024 12:45 PM EDT Office Visit [facility] [address] [place] [id number] Kelly Gay MD [address] [place] [address] [facility] Start: 01-12-2024 End: 01-11-2025 CBC W Auto Differential panel - Blood CBC and Auto Differential Lab Routine Class 1 obesity due to excess calories without serious comorbidity with body mass index (BMI) of 31.0 to 31.9 in adult Thyromegaly Expected: 01/12/2024 (Approximate), Expires: 01/11/2025 [facility] Service Area Work Phone: Comment on above: Expected: 01/12/2024 (Approximate), Expires: 01/11/2025 Start: 01-12-2024 End: 01-11-2025 Comprehensive metabolic 2000 panel - Serum or Plasma Comprehensive Metabolic Panel Lab Routine Class 1 obesity due to excess calories without serious comorbidity with body mass index (BMI) of 31.0 to 31.9 in adult Thyromegaly Expected: 01/12/2024 (Approximate), Expires: 01/11/2025 [facility] Work Phone: Comment on above: Expected: 01/12/2024 (Approximate), Expires: 01/11/2025 Start: 01-12-2024 End: 01-11-2025 Lipid 1996 panel - Serum or Plasma Lipid Panel Lab Routine Class 1 obesity due to excess calories without serious comorbidity with body mass index (BMI) of 31.0 to 31.9 in adult Thyromegaly Expected: 01/12/2024 (Approximate), Expires: 01/11/2025 [facility] Work Phone: Comment on above: Expected: 01/12/2024 (Approximate), Expires: 01/11/2025 Start: 01-12-2024 End: 01-11-2025 Opiate/Opioid/Benzo Prescription Compliance Opiate/Opioid/Benzo Prescription Compliance Lab Routine Class 1 obesity due to excess calories without serious comorbidity with body mass index (BMI) of 31.0 to 31.9 in adult Expected: 01/12/2024 (Approximate), Expires: 01/11/2025 [facility] Work Phone: Comment on above: Expected: 01/12/2024 (Approximate), Expires: 01/11/2025 Start: 01-12-2024 End: 01-11-2025 TSH with reflex to Free T4 if abnormal TSH with reflex to Free T4 if abnormal Lab Routine Class 1 obesity due to excess calories without serious comorbidity with body mass index (BMI) of 31.0 to 31.9 in adult Thyromegaly Expected: 01/12/2024 (Approximate), Expires: 01/11/2025 [facility] Work Phone: Comment on above: Expected: 01/12/2024 (Approximate), Expires: 01/11/2025 Start: 01-12-2024 End: 01-11-2025 US Thyroid gland US thyroid Imaging Routine Thyromegaly Expected: 01/12/2024, Expires: 01/11/2025 [facility] Work Phone: Comment on above: Expected: 01/12/2024 , Expires: 01/11/2025 Start: 11-15-2023 DTaP/Tdap/Td Vaccine s (7 - Td or Tdap) DTaP/Tdap/Td Vaccines (7 - Td or Tdap) [facility] Start: 2023 Screening for malign ant neoplasm of cervix [facility] Start: 06-26-2023 COVID-19 Vaccine () COVID-19 Vaccine () [facility] Start: 06-26-2023 Influenza vaccination Influenza Vacc ine (#1) [facility] Start: 2020 Hepatitis C screening Hepatitis C [facility] Start: 09-20-2010 Hepatitis A Vaccines (2 of 2 - 2-dose series) [facility] Start: 2006 Hearing Screening (#1) Hearing Geeta graves (#1) [facility] Start: 2005 Well Child Visit (WC V) - Annual Well Child Visit (WCV) - Annual [facility] Start: 03-19-2003 COVID-19 Vaccine (#1) COVID-19 Vacci ne (#1) [facility] Start: 2002 Hearing Screening (#1) Hearing Geeta graves (#1) [facility] Start: 2002 HIV screening HIV Screening [facility] Start: 2002 Lipid panel Lipid Panel [facility] CBC W Auto Different ial panel - Blood [facility] Chlamydia deoxyribon ucleic acid detection [facility] Hemoglobin A1c/Hemoglobin.total in Blood [facility] Hepatitis C antibody measurement [facility] Procedure [facility] Rubella IgG measurement [facility] Serologic test for syphilis [facility] Immunizations Immunization Date Immunization Notes Care Provider Fa jm 07-30-2021 influenza, injectabl e, quadrivalent, preservative free Kelly Gay MD Work Phone: [facility] Work Phone: 07-30-2021 influenza virus vacc ine, unspecified formulation Kelly Gay MD Work Phone: [facility] Work Phone: 03-29-2020 meningococcal B vacc ine, fully recombinant Kelly Gay MD Work Phone: [facility] Work Phone: 02-18-2019 meningococcal B vacc ine, fully recombinant Kelly Gay MD Work Phone: [facility] Work Phone: 02-18-2019 meningococcal polysaccharide (groups A, C, Y and W-135) diphtheria toxoid conjugate vaccine (MCV4P) Kelly Gay MD Work Phone: [facility] Work Phone: 05-28-2015 Human Papillomavirus 9-valent vaccine Kelly Gay MD Work Phone: [facility] Work Phone: 01-19-2015 human papilloma viru s vaccine, quadrivalent Kelly Gay MD Work Phone: [facility] Work Phone: 11-14-2014 human papilloma viru s vaccine, quadrivalent Kelly Gay MD Work Phone: [facility] Work Phone: 11-15-2013 meningococcal polysaccharide (groups A, C, Y and W-135) diphtheria toxoid conjugate vaccine (MCV4P) Kelly Gay MD Work Phone: [facility] Work Phone: 11-15-2013 tetanus toxoid, redu ambreen diphtheria toxoid, and acellular pertussis vaccine, adsorbed Kelly Gay MD Work Phone: [facility] Work Phone: 10-14-2010 influenza virus vacc ine, live, attenuated, for intranasal use Kelly Gay MD Work Phone: [facility] Work Phone: 03-20-2010 hepatitis A vaccine, pediatric/adolescent dosage, 2 dose schedule Kelly Gay MD Work Phone: [facility] Work Phone: 03-20-2010 hepatitis A and hepatitis B vaccine Kelly Gay MD Work Phone: [facility] Work Phone: 10-25-2009 novel Influenza-H1N1 -09, live virus for nasal administration Kelly Gay MD Work Phone: [facility] Work Phone: 10-11-2009 hepatitis A vaccine, pediatric/adolescent dosage, 2 dose schedule Kelly Gay MD Work Phone: [facility] Work Phone: 09-26-2009 novel Influenza-H1N1 -09, live virus for nasal administration Kelly Gay MD Work Phone: [facility] Work Phone: 08-21-2008 influenza, seasonal, injectable Kelly Gay MD Work Phone: [facility] Work Phone: 08-21-2008 varicella virus vaccine Zhen Gay MD Work Phone: [facility] Work Phone: 07-28-2007 diphtheria, tetanus toxoids and acellular pertussis vaccine, 5 pertussis antigens Kelly Gay MD Work Phone: [facility] Work Phone: 07-28-2007 measles, mumps and rubella virus vaccine Kelly Gay MD Work Phone: [facility] Work Phone: 07-28-2007 poliovirus vaccine, inactivated Kelly Gay MD Work Phone: [facility] Work Phone: 05-06-2004 measles, mumps and rubella virus vaccine Kelly Gay MD Work Phone: [facility] Work Phone: 05-06-2004 pneumococcal conjuga te vaccine, 7 valent Kelly Gay MD Work Phone: [facility] Work Phone: 12-18-2003 diphtheria, tetanus toxoids and acellular pertussis vaccine, unspecified formulation Kelly Gay MD Work Phone: [facility] Work Phone: 12-18-2003 haemophilus influenz ae type b conjugate and Hepatitis B vaccine Kelly Gay MD Work Phone: [facility] Work Phone: 12-18-2003 poliovirus vaccine, inactivated Kelly Gay MD Work Phone: [facility] Work Phone: 12-18-2003 varicella virus vaccine Zhen Gay MD Work Phone: [facility] Work Phone: 06-01-2003 pneumococcal conjuga te vaccine, 7 valent Kelly Gay MD Work Phone: [facility] Work Phone: 03-01-2003 diphtheria, tetanus toxoids and acellular pertussis vaccine, unspecified formulation Kelly Gay MD Work Phone: [facility] Work Phone: 03-01-2003 haemophilus influenz ae type b vaccine, conjugate unspecified formulation Kelly Gay MD Work Phone: [facility] Work Phone: 03-01-2003 poliovirus vaccine, inactivated Kelly Gay MD Work Phone: [facility] Work Phone: 01-04-2003 diphtheria, tetanus toxoids and acellular pertussis vaccine, unspecified formulation Kelly Gay MD Work Phone: [facility] Work Phone: 01-04-2003 haemophilus influenz ae type b vaccine, conjugate unspecified formulation Kelly Gay MD Work Phone: [facility] Work Phone: 01-04-2003 poliovirus vaccine, inactivated Kelly Gay MD Work Phone: [facility] Work Phone: 2002 diphtheria, tetanus toxoids and acellular pertussis vaccine, unspecified formulation Kelly Gay MD Work Phone: [facility] Work Phone: 2002 haemophilus influenz ae type b vaccine, conjugate unspecified formulation Kelly Gay MD Work Phone: [facility] Work Phone: 2002 hepatitis B vaccine, pediatric or pediatric/adolescent dosage Kelly Gay MD Work Phone: [facility] Work Phone: 2002 pneumococcal conjuga te vaccine, 7 valent Kelly Gay MD Work Phone: [facility] Work Phone: 2002 hepatitis B vaccine, pediatric or pediatric/adolescent dosage Kelly Gay MD Work Phone: [facility] Work Phone: Payers Date Payer Category Payer Self-pay 2025 Unknown [id number] 2023 Private Health Insurance [facility] [employer] PLAN [id number] 2023-Present Ariel Soto [id number] ANGELA Mackenzie [id number] 2023 Private Health Insurance [id number] 2002 Unknown [id number] 243 2002 Unknown [id number] 244 2002 Unknown [id number] 244 2002 Unknown [id number] 244 2002 Unknown [id number] 244 2002 Unknown [id number] 244 2002 Unknown [id number] 244 2002 Unknown [id number] 79 2002 Unknown [id number] 79 Unknown [id number] 62 Unknown [id number] 62 Unknown [id number] 62 Unknown [id number] 62 Unknown [id number] 62 Unknown [id number] 62 Unknown [id number] 62 Unknown [id number] 62 Social History Date Type Detail Facility Start: 01-12-2024 Tobacco smoking status MDIS Never smoked tobacco [facility] Work Phone: Start: 01-12-2024 Tobacco use and exposure Smokeless tobacco non-user [facility] Work Phone: Start: 01-12-2024 End: 04-20-2024 Alcohol intake Ex-drinker (finding) [facility] Work Phone: Start: 01-12-2024 End: 03-23-2024 History of Social function [facility] Work Phone: Start: 01-12-2024 End: 03-23-2024 Tobacco use panel [facility] Work Phone: Start: 2002 Sex Assigned At Not on file [facility] Work Phone: Start: 01-02-2024 End: 04-20-2024 Exposure to SARS-CoV-2 (event) Not sure [facility] Start: 02-20-2024 End: 03-01-2024 Exposure to SARS-CoV-2 (event) Unable to assess [facility] Start: 06-02-2025 Tobacco smoking status NHIS Ex-smoker (finding) [facility] Start: 2000 Sex Assigned At Female [facility] NEGATED: Highlighted rowStart: NINF History of tobacco use Passive smoker [facility] Work Phone: Clinical Notes 01-12-2024 to 08-03-2025 Note Date & Type Note Facility 08-03-2025 Progress note [facility] 08-03-2025 Progress note Note Date/Time August 03, 2025 4:22pm [facility] [address] [place] [address], [address] [place] [address] OFFICE VISIT Date of Service: 08/03/25 MR#: [id number] Acct: [id number] Name: HANDY MOREJON Rep #: [id number] : 2000 Provider: Dr. Judy Fairbanks DO Age/Sex: 24/F Location: [facility] Status: Signed Intake Vital Signs 06/09/25 15:06 07/06/25 15:51 08/03/25 16:03 08/03/25 16:03 Height 5 ft 5 in 5 ft 5 in 5 ft 5 in 5 ft 5 in Weight: 186 lb 4 oz 188 lb 4 oz BMI 30.9 31.3 BP 131/83 H 123/75 H Intake Visit Reasons: 17 WK OB Baby Formula Mixer Required: No Is patient in pain?: No Allergies No Known Allergies Allergy (Verified 08/03/25 16:03) Medications ?Medication ?Instructions ?Recorded ?Confirmed ?Type doxylamine succinate 25 mg tablet 25 mg PO Q6H PRN 06/1908/03/25 History (Unisom (doxylamine)) multivitamin no.47-iron fum 27 cap PO 06/02/25 5 History mg-folate no.1 1 mg-dha 300 mg capsule (PNV-DHA) pyridoxine (vitamin B6) 10 mg 10 mg PO QDAY 06/02/25 1 History tablet Last Menstrual Period: 04/07/25 Zika: Zika virus screening: Negative : No PFSH PFSH Surgical History S/P LASIK (laser assisted in situ keratomileusis) of both eyes [place] teeth extracted Social History adopted: No household members: spouse housing: house current occupational status: employed 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/hazards: No pets and animals: Yes (2) pets and animals: dog(s) history of recent travel: Yes (- April) out of state: Yes out of country: No sexually active: Yes Smoking Status: Former smoker Electronic Cigarette Use: with nicotine alcohol intake: current alcohol intake frequency: holidays/special occasions only details: not while substance use type: does not use well-balanced diet: daily or most days caffeine: No eating out: 1-3 times/week during the past year weight has: remained stable what type of physical activity do you participate in: walking frequency: 1-2 times per week duration: 15-30 minutes/day brant/congregation: [employer]orationist seatbelt use: always do you feel safe at home: Yes additional social history: Will- [place] History 1 Elective abortions Hx Para 0 Spontaneous abortions Hx # Term Pregnancies Ectopic pregnancies Hx # Pregnancies Multiple births # of living children HPI 17 WK OB Details: HANDY MOREJON is a 24 year old who presents for routine OB visit. OB Visit VICKI Calculator Estimated Delivery Date Method Current WG Current Estimate 01/12/26 LMP (Certain) 16w 6d Other Estimates 01/13/26 Ultrasound #1 16w 5d Expected Delivery Route/Plan Labor Preferences- CB/BF classes: [] labor support person: [] labor intervention preferences: [] pain management options preferred: [] cut cord/dad catch: [] : [] PP control planned: [] discussed possible routes of delivery and associated risks: [] special requests: [] Specific Issue/Plans Covid status: [] Flu vaccine: [] Tdap vaccine: [] Rhogam: [] LARC form signed: [] Problem list reviewed and updated with the most current plan of care details and appropriate orders placed. Relevant counseling for the gestational age provided. Continue routine care and follow up unless otherwise noted in visit notes/problem list details Initial Weight: 191 lb Date -?-?-?-?-?-?-?-?-?-?-?-?- EGA Weight BP Urine Prot -?-?-?-?-?-?-?-?-?-?-?-?- Glucose FHR FuHt Pres Dilation -?-?-?-?-?-?-?-?-?-?-?-?- Effaced St Visit Note 06/09/25 -?-?-?-?-?-?-?-?-?-?-?-?- 9w 0d 191 lb 2 oz (+2 oz) 127/82 -?-?-?-?-?-?-?-?-?-?-?-?- 179 -?-?-?-?-?-?-?-?-?-?-?-?- KW- CRL 5.12 con s with dates. accepts NIPT and carrier 07/06/25 -?-?-?-?-?-?-?-?-?-?-?-?- 12w 6d 186 lb 4 oz (-4 lb 12 oz) 131/83 Negative -?-?-?-?-?-?-?-?-?-?-?-?- Negative 160 -?-?-?-?-?-?-?-?-?-?-?-?- SM- no vb crampi ng 08/03/25 -?-?-?-?-?-?-?-?-?-?-?-?- 16w 6d 188 lb 4 oz (-2 lb 12 oz) 123/75 Negative -?-?-?-?-?-?-?-?-?-?-?-?- Negative 150 -?-?-?-?-?-?-?-?-?-?-?-?- JV- no cramping or spotting, declined flu shot. ACOG First Trimester First Trimester: Desire for , Alcohol, Tobacco Cessation, Illicit/Recreational Drug/Substance Use, Intimate Partner Violence, Barriers to care, Unstable Housing, Communication Barriers, Environmental/Work Hazards, Anticipated Course of Care, Toxoplasmosis Precations, Use of Any medications, Sexual activity, Exercise, Dental Care, Sauna/Hot tub use, Seat Belt use, Childbirth classes/Hospital facilities, Travel, Indications for Ultrasound and Screening for Aneuploidy; Discussed Second Trimester Second Trimester: Signs and Symptoms of Labor, Selecting a care provider, Reproductive Life Planning & Contreception, Care Planning, Depression/Anxiety and Intimate Partner Violence; Discussed Tobacco Cessation Third Trimester Third Trimester: Pain Management Plans, Labor support person(s), Immediate Larc, Signs and Symptoms of Preeclampsia, Infant Feeding No , [place] Education and Family Medical Leave or Disability Forms Results POC Urinalysis 2 Dip (Clinic) Office Urine Glucose Negative Last Edit by Berta Workman on 08/03/25 16: 07 Office Urine Protein Negative Last Edit by Berta Workman on 08/03/25 16: 07 Coding Level of Care Code OB Routine Diagnoses UTI (urinary tract infection) during O23.40 Supervision of normal Z34.90 16 weeks gestation of Z3A.16 Weeks of gestation: 16 weeks Obesity affecting O99.210 History of nicotine vaping Z87.891 Assessment and Plan Assessment and Plan (1) UTI (urinary tract infection) during : Status: Acute Comment: at NOB. reculture in 4 weeks (2) Supervision of normal : Status: Acute Comment: PRR, , VICKI 01/12/26, Will (3) : Status: Acute Qualifiers: Weeks of gestation: 16 weeks Qualified Code(s): Z3A.16 - 16 weeks gestation of Comment: elects NIPT with Gender, declines Carrier (4) Obesity affecting : Status: Acute (5) History of nicotine vaping: Status: Acute Comment: Quit 6months ago Orders: Orders POC Urinalysis 2 Dip (Clinic) Today 08/03/25 1626 <Electronically signed by Mercedse Keller DO> Date _ Mercedes Fairbanks DO [facility] Signature: Date (if applicable) CC: ~ [facility] Work Phone: 1(945) 613-682509-11-2025 Progress [facility] [address] [place] [address], [place] [address] OFFICE VISIT Date of Service: 07/06/25 MR#: [id number] Acct: [id number] Name: HANDY MOREJON Rep #: [id number] : 2000 Provider: Dr. Ralf Geiger MD Age/Sex: 24/F [place] [facility] [place]: Signed Intake Vital Signs 06/09/25 15:06 07/06/25 15:51 Height 5 ft 5 in 5 ft 5 in Weight: 186 lb 4 oz BMI 30.9 BP 131/83 H Intake Visit Reasons: 13 WK OB Baby Formula Mixer Required: No Is patient in pain?: No Feel stressed/tense/nervous/anxious/difficulty sleeping: not at all Allergies No Known Allergies Allergy (Unverified 07/06/25 15:53) Medications ?Medication ?Instructions ?Recorded ?Confirmed ?Type doxylamine succinate 25 mg tablet 25 mg PO Q6H PRN 06/1907/06/25 History (Unisom (doxylamine)) multivitamin no.47-iron fum 27 cap PO 06/02/25 5 History mg-folate no.1 1 mg-dha 300 mg capsule (PNV-DHA) pyridoxine (vitamin B6) 10 mg 10 mg PO QDAY 06/02/25 0 07/06/25 History tablet Last Menstrual Period: 04/07/25 Zika: Zika virus screening: Negative : No PFSH PFSH Surgical History S/P LASIK (laser assisted in situ keratomileusis) of both eyes [place] teeth extracted Social History adopted: No household members: spouse housing: house current occupational status: employed 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/hazards: No pets and animals: Yes (2) pets and animals: dog(s) history of recent travel: Yes (- April) out of state: Yes out of country: No sexually active: Yes Smoking Status: Former smoker Electronic Cigarette Use: with nicotine alcohol intake: current alcohol intake frequency: holidays/special occasions only details: not while substance use type: does not use well-balanced diet: daily or most days caffeine: No eating out: 1-3 times/week during the past year weight has: remained stable what type of physical activity do you participate in: walking frequency: 1-2 times per week duration: 15-30 minutes/day brant/congregation: Restorationist seatbelt use: always do you feel safe at home: Yes additional social history: Will- [place] History 1 Elective abortions Hx Para 0 Spontaneous abortions Hx # Term Pregnancies Ectopic pregnancies Hx # Pregnancies Multiple births # of living children HPI 13 WK OB Details: HANDY MOREJON is a 24 year old who presents for routine OB visit. OB Visit VICKI Calculator Estimated Delivery Date Method Current WG Current Estimate 01/12/26 LMP (Certain) 12w 6d Other Estimates 01/13/26 Ultrasound #1 12w 5d Expected Delivery Route/Plan Labor Preferences- CB/BF classes: [] labor support person: [] labor intervention preferences: [] pain management options preferred: [] cut cord/dad catch: [] : [] PP control planned: [] discussed possible routes of delivery and associated risks: [] special requests: [] Specific Issue/Plans Covid status: [] Flu vaccine: [] Tdap vaccine: [] Rhogam: [] LARC form signed: [] Problem list reviewed and updated with the most current plan of care details and appropriate ordersplaced. Relevant counseling for the gestational age provided. Continue routine care and follow up unless otherwise noted in visit notes/problem list details Initial Weight: 191 lb Date -?-?-?-?-?-?-?-?-?-?-?-?- EGA Weight BP Urine Prot -?-?-?-?-?-?-?-?-?-?--?-?- Glucose FHR FuHt Pres Dilation -?-?-?-?-?-?-?-?-?-?-?-?- Effaced St Visit Note 06/09/25 -?-?-?-?-?-?-?-?-?-?-?-?- 9w 0d 191 lb 2 oz (+2 oz) 127/82 -?-?-?-?-?-?-?-?-?-?-?-?- 179 -?-?-?-?-?-?-?-?-?-?-?-?- KW- CRL 5.12 con s with dates. accepts NIPT and carrier 07/06/25 -?-?-?-?-?-?-?-?-?-?-?-?- 12w 6d 186 lb 4 oz (-4 lb 12 oz) 131/83 Negative -?-?-?-?-?-?-?-?-?-?-?-?- Negative 160 -?-?-?-?-?-?-?-?-?-?-?-?- SM- no vb crampi ng ACOG First Trimester First Trimester: Desire for , Alcohol, Tobacco Cessation, Illicit/Recreational Drug/Substance Use, Intimate Partner Violence, Barriers to care, Unstable Housing, Communication Barriers, Environmental/Work Hazards, Anticipated Course of Care, Toxoplasmosis Precations, Use of Any med ications, Sexual activity, Exercise, Dental Care, Sauna/Hot tub use, Seat Belt use, Childbirth classes/Hospital facilities, Travel, Indications for Ultrasound and Screening for Aneuploidy; Discussed Second Trimester Second Trimester: Signs and Symptoms of Labor, Selecting a care provider, Reproductive Life Planning & Contreception, Care Planning, Depression/Anxiety and Intimate Partner Violence; Discussed Tobacco Cessation Third Trimester Third Trimester: Pain Management Plans, Labor support person(s), Immediate Larc, Signs and Symptoms of Preeclampsia, Infant Feeding No , [place] Education and Family Medical Leave or Disability Forms Results POC Urinalysis 2 Dip (Clinic) Office Urine Glucose Negative Last Edit by Martha Wallace on 07/06/25 15:59 Office Urine Protein Negative Last Edit by Martha Wallace on 07/06/25 15:59 Coding Level of Care Code OB Routine Diagnoses UTI (urinary tract infection) during O23.40 Supervision of normal Z34.90 12 weeks gestation of Z3A.12 Weeks of gestation: 12 weeks Obesity affecting O99.210 History of nicotine vaping Z87.891 Assessment and Plan Assessment and Plan (1) UTI (urinary tract infection) during : Status: Acute Comment: at NOB. reculture in 4 weeks (2) Supervision of normal : Status: Acute Comment: , VICKI 01/12/26, Will (3) : Status: Acute Qualifiers: Weeks of gestation: 12 weeks Qualified Code(s): Z3A.12 - 12 weeks gestation of Comment: elects NIPT with Gender, declines Carrier (4) Obesity affecting : Status: Acute (5) History of nicotine vaping: Status: Acute Comment: Quit 6months ago Orders: Orders POC Urinalysis 2 Dip (Clinic) Today 07/06/25 1632 ayush DOUGLASS> Date _ Mayra Geiger MD Cosigner Signature: Date (if applicable) CC: ~ [facility]09-11-2025 Progress note Author Mayra Geiger [facility] Note Date/Time July 06, 2025 4:32pm [facility] [address], [address] [place] [address] OFFICE VISIT Date of Service: 07/06/25 MR#: [id number] Acct: [id number] Name: HANDY MOREJON Rep #: [id number] : 2000 Provider: Dr. Ralf Geiger MD Age/Sex: 24/F [place] [facility] [place]: Signed Intake Vital Signs 06/09/25 15:06 07/06/25 15:51 Height 5 ft 5 in 5 ft 5 in Weight: 186 lb 4 oz BMI 30.9 BP 131/83 H Intake Visit Reasons: 13 WK OB Baby Formula Mixer Required: No Is patient in pain?: No Feel stressed/tense/nervous/anxious/difficulty sleeping: not at all Allergies No Known Allergies Allergy (Unverified 07/06/25 15:53) Medications ?Medication ?Instructions ?Recorded ?Confirmed ?Type doxylamine succinate 25 mg tablet 25 mg PO Q6H PRN 06/1907/06/25 History (Unisom (doxylamine)) multivitamin no.47-iron fum 27 cap PO 06/02/25 5 History mg-folate no.1 1 mg-dha 300 mg capsule (PNV-DHA) pyridoxine (vitamin B6) 10 mg 10 mg PO QDAY 06/02/25 0 07/06/25 History tablet Last Menstrual Period: 04/07/25 Zika: Zika virus screening: Negative : No PFSH PFSH Surgical History S/P LASIK (laser assisted in situ keratomileusis) of both eyes [place] teeth extracted Social History adopted: No household members: spouse housing: house current occupational status: employed 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/hazards: No pets and animals: Yes (2) pets and animals: dog(s) history of recent travel: Yes (- April) out of state: Yes out of country: No sexually active: Yes Smoking Status: Former smoker Electronic Cigarette Use: with nicotine alcohol intake: current alcohol intake frequency: holidays/special occasions only details: not while substance use type: does not use well-balanced diet: daily or most days caffeine: No eating out: 1-3 times/week during the past year weight has: remained stable what type of physical activity do you participate in: walking frequency: 1-2 times per week duration: 15-30 minutes/day brant/congregation: Restorationist seatbelt use: always do you feel safe at home: Yes additional social history: Will- [place] History 1 Elective abortions Hx Para 0 Spontaneous abortions Hx # Term Pregnancies Ectopic pregnancies Hx # Pregnancies Multiple births # of living children HPI 13 WK OB Details: HANDY MOREJON is a 24 year old who presents for routine OB visit. OB Visit VICKI Calculator Estimated Delivery Date Method Current WG Current Estimate 01/12/26 LMP (Certain) 12w 6d Other Estimates 01/13/26 Ultrasound #1 12w 5d Expected Delivery Route/Plan Labor Preferences- CB/BF classes: [] labor support person: [] labor intervention preferences: [] pain management options preferred: [] cut cord/dad catch: [] : [] PP control planned: [] discussed possible routes of delivery and associated risks: [] special requests: [] Specific Issue/Plans Covid status: [] Flu vaccine: [] Tdap vaccine: [] Rhogam: [] LARC form signed: [] Problem list reviewed and updated with the most current plan of care details and appropriate orders placed. Relevant counseling for the gestational age provided. Continue routine care and follow up unless otherwise noted in visit notes/problem list details Initial Weight: 191 lb Date -?-?-?-?-?-?-?-?-?-?-?-?- EGA Weight BP Urine Prot -?-?-?-?-?-?-?-?-?-?--?-?- Glucose FHR FuHt Pres Dilation -?-?-?-?-?-?-?-?-?-?-?-?- Effaced St Visit Note 06/09/25 -?-?-?-?-?-?-?-?-?-?-?-?- 9w 0d 191 lb 2 oz (+2 oz) 127/82 -?-?-?-?-?-?-?-?-?-?-?-?- 179 -?-?-?-?-?-?-?-?-?-?-?-?- KW- CRL 5.12 con s with dates. accepts NIPT and carrier 07/06/25 -?-?-?-?-?-?-?-?-?-?-?-?- 12w 6d 186 lb 4 oz (-4 lb 12 oz) 131/83 Negative -?-?-?-?-?-?-?-?-?-?-?-?- Negative 160 -?-?-?-?-?-?-?-?-?-?-?-?- SM- no vb crampi ng ACOG First Trimester First Trimester: Desire for , Alcohol, Tobacco Cessation, Illicit/Recreational Drug/Substance Use, Intimate Partner Violence, Barriers to care, Unstable Housing, Communication Barriers, Environmental/Work Hazards, Anticipated Course of Care, Toxoplasmosis Precations, Use of Any medications, Sexual activity, Exercise, Dental Care, Sauna/Hot tub use, Seat Belt use, Childbirth classes/Hospital facilities, Travel, Indications for Ultrasound and Screening for Aneuploidy; Discussed Second Trimester Second Trimester: Signs and Symptoms of Labor, Selecting a care provider, Reproductive Life Planning & Contreception, Care Planning, Depression/Anxiety and Intimate Partner Violence; Discussed Tobacco Cessation Third Trimester Third Trimester: Pain Management Plans, Labor support person(s), Immediate Larc, Signs and Symptoms of Preeclampsia, Infant Feeding No , [place] Education and Family Medical Leave or Disability Forms Results POC Urinalysis 2 Dip (Clinic) Office Urine Glucose Negative Last Edit by Martha Wallace on 07/06/25 15:59 Office Urine Protein Negative Last Edit by Martha Wallace on 07/06/25 15:59 Coding Level of Care Code OB Routine Diagnoses UTI (urinary tract infection) during O23.40 Supervision of normal Z34.90 12 weeks gestation of Z3A.12 Weeks of gestation: 12 weeks Obesity affecting O99.210 History of nicotine vaping Z87.891 Assessment and Plan Assessment and Plan (1) UTI (urinary tract infection) during : Status: Acute Comment: at NOB. reculture in 4 weeks (2) Supervision of normal : Status: Acute Comment: , VICKI 01/12/26, Will (3) : Status: Acute Qualifiers: Weeks of gestation: 12 weeks Qualified Code(s): Z3A.12 - 12 weeks gestation of Comment: elects NIPT with Gender, declines Carrier (4) Obesity affecting : Status: Acute (5) History of nicotine vaping: Status: Acute Comment: Quit 6months ago Orders: Orders POC Urinalysis 2 Dip (Clinic) Today 07/06/25 1632 <Electronically signed by Mayra peacock MD> Date _ Mayra Geiger MD Cosigner Signature: Date (if applicable) CC: ~ [facility] Work Phone: 1(366) 393-669408-15-2025 Evaluation note* Diagnosis Onset Date Resolution Status Admit Date History of nicotine vaping acute June 09, 2025 2:58pm Obesity affecting acute June 09, 2025 2:58pm acute June 09, 2 025 2:58pm Supervision of normal acut e June 09, 2025 2:58pm [facility] Work Phone: 1(276) 277-171208-15-2025 Evaluation note* Diagnosis Onset Date Resolution Status Admit Date History of nicotine vaping acute June 09, 2025 2:58pm Obesity affecting acute June 09, 2025 2:58pm acute June 09, 2 025 2:58pm Supervision of normal acute June 09 2:58pm History of nicotine vaping acute July 06, 2025 3:46pm Obesity affecting acute July 06, 2025 3:46pm acute June 3:46pm Supervision of normal acute July 06, 2025 3:46pm UTI (urinary tract infection ) during acute July 06, 2025 3:46pm [facility] Work Phone: 1([phone]) 824-290508-15-2025 Evaluation note* Diagnosis Onset Date Resolution Status Admit Date History of nicotine vaping acute June 09, 2025 2:58pm Obesity affecting acute June 09, 2025 2:58pm acute June 09, 2 025 2:58pm Supervision of normal acute June 09 2:58pm History of nicotine vaping acute July 06, 2025 3:46pm Obesity affecting acute July 06, 2025 3:46pm acute June 3:46pm Supervision of normal acute July 06, 2025 3:46pm UTI (urinary tract infection ) during acute July 06, 2025 3:46pm History of nicotine vaping acute August 03, 2025 3:50pm Obesity affecting acute August 03, 2025 3:50pm acute August 03, 025 3:50pm Supervision of normal acute August 03 3:50pm UTI (urinary tract infection ) during acute August 03 3:50pm [facility] [facility] Work Phone: 1([phone]) 600-440508-15-2025 Progress [facility] [address] [place] [address], [address] [place] [address] OFFICE VISIT Date of Service: 06/09/25 MR#: [id number] Acct: [id number] Name: HANDY MOREJON Rep #: [id number] : 2000 Provider: KASSANDRA Morrison Age/Sex: 24/F [place] [facility] [place]: Signed Intake Vital Signs 06/02/25 13:58 06/09/25 15:06 Height 5 ft 5 in 5 ft 5 in Weight: 191 lb 2 oz BMI 31.8 BP 127/82 H Intake Visit Reasons: *NEW* NOB LMP 04/14, VICKI 01/12 Chief Complaint: new ob Baby Formula Mixer Required: No Is patient in pain?: No Allergies No Known Allergies Allergy (Unverified 06/09/25 15:08) Medications ?Medication ?Instructions ?Recorded ?Confirmed ?Type doxylamine succinate 25 mg tablet 25 mg PO Q6H PRN 06/1906/09/25 History (Unisom (doxylamine)) multivitamin no.47-iron fum 27 cap PO 06/02/25 5 History mg-folate no.1 1 mg-dha 300 mg capsule (PNV-DHA) pyridoxine (vitamin B6) 10 mg 10 mg PO QDAY 06/02/25 0 06/09/25 History tablet Last Menstrual Period: 04/07/25 : Yes PFSH PFSH Surgical History S/P LASIK (laser assisted in situ keratomileusis) of both eyes [place] teeth extracted Social History adopted: No household members: spouse housing: house current occupational status: employed 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/hazards: No pets and animals: Yes (2) pets and animals: dog(s) history of recent travel: Yes (- April) out of state: Yes out of country: No sexually active: Yes Smoking Status: Former smoker Electronic Cigarette Use: with nicotine alcohol intake: current alcohol intake frequency: holidays/special occasions only details: not while substance use type: does not use well-balanced diet: daily or most days caffeine: No eating out: 1-3 times/week during the past year weight has: remained stable what type of physical activity do you participate in: walking frequency: 1-2 times per week duration: 15-30 minutes/day brant/congregation: Restorationist seatbelt use: always do you feel safe at home: Yes additional social history: Will- [place] History 1 Elective abortions Hx Para 0 Spontaneous abortions Hx # Term Pregnancies Ectopic pregnancies Hx # Pregnancies Multiple births # of living children HPI *NEW* NOB LMP 04/14, VICKI 01/12 Details: HANDY MOREJON is a 24 year old who presents for New OB visit. OB Visit VICKI Calculator Estimated Delivery Date Method Current WG Current Estimate 01/12/26 LMP (Certain) 9w 0d Other Estimates 01/13/26 Ultrasound #1 8w 6d Estimated Due Date: 01/12/26 Expected Delivery Route/Plan Labor Preferences- CB/BF classes: [] labor support person: [] labor intervention preferences: [] pain management options preferred: [] cut cord/dad catch: [] : [] PP control planned: [] discussed possible routes of delivery and associated risks: [] special requests: [] Specific Issue/Plans Covid status: [] Flu vaccine: [] Tdap vaccine: [] Rhogam: [] LARC form signed: [] Problem list reviewed and updated with the most current plan of care details andappropriate orders placed. Relevant counseling for the gestational age provided. Continue routine care and follow up unless otherwise noted in visit notes/problem list details Initial Weight: 191 lb Date -?-?-?-?-?-?-?-?-?-?--?-?- EGA Weight BP Urine Prot -?-?-?-?-?-?-?-?-?-?-?-?- Glucose FHR FuHt Pres Dilation -?-?-?-?-?-?-?-?-?-?-?-?- Effaced St Visit Note 06/09/25 -?-?-?-?-?-?-?-?-?-?-?-?- 9w 0d 191 lb 2 oz (+2 oz) 127/82 -?-?-?-?-?-?-?-?-?-?-?-?- 179 -?-?-?-?-?-?-?-?-?-?-?-?- KW- CRL 5.12 con s with dates. accepts NIPT and carrier Menstrual History Last Menstrual Period: 04/07/25 Reported LMP: definite Normal amount/duration: No (heavier and longer than normal) Frequency in days: 28-30 On hormonal BC at conception: No hCG+: 05/10/25 Antepartum Record Genetic Screening: Congenital Heart Defect: Partner (heart murmur-resloved), Neural Tube Defect: Other, Hemoglobinopathy Or Carrier: Other, Cystic Fibrosis: Other, Chromosome Abnormality: Other, Marcos-Sachs: Other, Hemophilia: Other, Intellectual Disability/Autism: Other, Recurrent Loss/Stillbirth: Other, Other Structural Defect: Other, Other Genetic Disease: Other and Maternal Metabolic Disorder: Other Infection History: Live with someone with TB or Exposed to TB: No, Patient or Partner has history of Genital Herpes: No, Rash or Viral illness since last mentrual period: No, Prior GBS-Infected child: No, History of STD: No, HIV Infection: No, History of Hepatitis: No, Recent travel outside of [place]: No, Concern for hepatitis exposure: No, Varicella immune: Yes (immune-vaccinated) and Covid Vaccinated: No Medical History Medical History: Positive: Operations/hospitalizations (wisdom teeth, Lasik) andOther (obesity BMI 31.4) and Negative: Diabetes, Hypertension, Heart disease, Auto-immune disorder, Kidney disease/UTI,Neurologic/epilepsy, Psychiatric, Depression/ depression, Hepatitis/liver disease, Varicos ities/phlebitis, Thyroid dysfunction, Trauma/domestic violence, History of blood transfusions, D (Rh) Sensitized (O+), Pulmonary (e.g.,TB,Asthma), Seasonal allergies, Drug/latex allergies/reactions, Breast, Business Transformation Analyst surgery, Anesthetic complications, History of abnormal pap, Uterine anomaly/meliton, Infertility, Anti- retroviral treatment and Relevant family history ACOG First Trimester First Trimester: Desire for , Alcohol, Tobacco Cessation, Illicit/Recreational Drug/Substance Use, Intimate Partner Violence, Barriers to care, Unstable Housing, Communication Barriers, Environmental/Work Hazards, Anticipated Course of Care, Toxoplasmosis Precations, Use of Any med ications, Sexual activity, Exercise, Dental Care, Sauna/Hot tub use, Seat Belt use, Childbirth classes/Hospital facilities, , Travel, Indications for Ultrasound and Screening for Aneuploidy Second Trimester Second Trimester: Signs and Symptoms of Labor, Selecting a care provider, Reproductive Life Planning & Contreception, Care Planning, Depression/Anxiety and Intimate Partner Violence; Discussed Tobacco Cessation Third Trimester Third Trimester: Pain Management Plans, Labor support person(s), Immediate Larc, Signs and Symptoms of Preeclampsia, Feeding Yes , Education and Family Medical Leave or Disability Forms ROS Const Reports system reviewed and no additional complaints, except as documented, Denies fatigue, Denies headache(s) and Denies lethargy ENT Denies headache(s) Card Reports system reviewed and no additional complaints, except as documented Resp Reports system reviewed and no additional complaints, except as documented GI Reports system reviewed and no additional complaints, except as documented, Denies abdominal pain, Denies constipation, Denies cramping, Denies diarrhea andDenies dyspepsia Reports system reviewed and no additional complaints, except as documented, Denies abnormal vaginalbleeding, Denies difficulty voiding, Denies dyspareunia and Denies dysuria Musc Reports system reviewed and no additional complaints, except as documented Skin/Breast Reports system reviewed and no additional complaints, except as documented Neuro Yes system reviewed and no additional complaints, except as documented and No headache(s) Psych Reports system reviewed and no additional complaints, except as documented, Denies anhedonia and Denies anxiety Endo Reports system reviewed and no additional complaints, except as documented and Denies fatigue Exam Const General: cooperative, healthy appearing and comfortable Neck Neck: normal visual inspection and full ROM Chest Chest palpation & inspection: normal inspection of the chest Breast inspection: normal inspection of the breasts and normal inspection of theaxillae Breast palpation: normal palpation of the breasts and normal palpation of the axillae Resp Effort & Inspection: normal respiratory effort and able to speak in complete sentences GI Inspection: normal to inspection Palpation: soft External Female Exam: normal external appearance and normal appearance of the urethra Urethra: normal appearance of the urethra Skin General: no rashes or lesions noted Neuro General: patient alert, patient awake and patient oriented x3 Extrem General: normal to inspection and full ROM Psych Appearance: grossly normal and well kempt Mental Status: mental status grossly normal Mood: congruent mood Affect: normal affect Speech and Movement: speech and movement normal Thought Process: normal Thought Content: normal Coding Level of Care Code OB Routine Diagnoses Supervision of normal Z34.90 9 weeks gestation of Z3A.09 Weeks of gestation: 9 weeks Obesity affecting O99.210 History of nicotine vaping Z87.891 Assessment and Plan Assessment and Plan (1) Supervision of normal : Status: Acute Comment: , VICKI 01/12/26, Will (2) : Status: Acute Qualifiers: Weeks of gestation: 9 weeks Qualified Code(s): Z3A.09 - 9 weeks gestation of Comment: elects NIPT with Gender, declines Carrier (3) Obesity affecting : Status: Acute (4) History of nicotine vaping: Status: Acute Comment: Quit 6months ago Comments Comments: Patient oriented to practice and discussed care expectations and screenings. ACOG book offered to patient. Discussed routine and specially indicated labs if needed- patient consents to testing. See problem list details for plan information. Optional screening including maternal carrier screenings, neural tube defect screening, genetic screening options including quad screen, nuchal translucency, sequential screening, and NIPT screening offered to patient and patient chose: NIPT and carrier 06/09/25 1553 s CNM> Date _ Kenya Prince KASSANDRA Cosigner Signature: Date (if applicable) CC: ~ [facility]08-15-2025 Progress note Author Kenya Prince [facility] Note Date/Time June 09, 2025 3: 53pm [facility] [address], [address] [place] [address] OFFICE VISIT Date of Service: 06/09/25 MR#: [id number] Acct: [id number] Name: HANDY MOREJON Rep #: [id number] : 2000 Provider: KASSANDRA Morrison Age/Sex: 24/F [place] [facility] [place]: Signed Intake Vital Signs 06/02/25 13:58 06/09/25 15:06 Height 5 ft 5 in 5 ft 5 in Weight: 191 lb 2 oz BMI 31.8 BP 127/82 H Intake Visit Reasons: *NEW* NOB LMP 04/14, VICKI 01/12 Chief Complaint: new ob Baby Formula Mixer Required: No Is patient in pain?: No Allergies No Known Allergies Allergy (Unverified 06/09/25 15:08) Medications ?Medication ?Instructions ?Recorded ?Confirmed ?Type doxylamine succinate 25 mg tablet 25 mg PO Q6H PRN 06/1906/09/25 History (Unisom (doxylamine)) multivitamin no.47-iron fum 27 cap PO 06/02/25 5 History mg-folate no.1 1 mg-dha 300 mg capsule (PNV-DHA) pyridoxine (vitamin B6) 10 mg 10 mg PO QDAY 06/02/25 0 06/09/25 History tablet Last Menstrual Period: 04/07/25 : Yes PFSH PFSH Surgical History S/P LASIK (laser assisted in situ keratomileusis) of both eyes [place] teeth extracted Social History adopted: No household members: spouse housing: house current occupational status: employed 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/hazards: No pets and animals: Yes (2) pets and animals: dog(s) history of recent travel: Yes (- April) out of state: Yes out of country: No sexually active: Yes Smoking Status: Former smoker Electronic Cigarette Use: with nicotine alcohol intake: current alcohol intake frequency: holidays/special occasions only details: not while substance use type: does not use well-balanced diet: daily or most days caffeine: No eating out: 1-3 times/week during the past year weight has: remained stable what type of physical activity do you participate in: walking frequency: 1-2 times per week duration: 15-30 minutes/day brant/congregation: [employer]oration[employer] seatbelt use: always do you feel safe at home: Yes additional social history: Will- [place] History 1 Elective abortions Hx Para 0 Spontaneous abortions Hx # Term Pregnancies Ectopic pregnancies Hx # Pregnancies Multiple births # of living children HPI *NEW* NOB LMP 04/14, VICKI 01/12 Details: HANDY MOREJON is a 24 year old who presents for New OB visit. OB Visit VICKI Calculator Estimated Delivery Date Method Current WG Current Estimate 01/12/26 LMP (Certain) 9w 0d Other Estimates 01/13/26 Ultrasound #1 8w 6d Estimated Due Date: 01/12/26 Expected Delivery Route/Plan Labor Preferences- CB/BF classes: [] labor support person: [] labor intervention preferences: [] pain management options preferred: [] cut cord/dad catch: [] : [] PP control planned: [] discussed possible routes of delivery and associated risks: [] special requests: [] Specific Issue/Plans Covid status: [] Flu vaccine: [] Tdap vaccine: [] Rhogam: [] LARC form signed: [] Problem list reviewed and updated with the most current plan of care details andappropriate orders placed. Relevant counseling for the gestational age provided. Continue routine care and follow up unless otherwise noted in visit notes/problem list details Initial Weight: 191 lb Date -?-?-?-?-?-?-?-?-?-?--?-?- EGA Weight BP Urine Prot -?-?-?-?-?-?-?-?-?-?-?-?- Glucose FHR FuHt Pres Dilation -?-?-?-?-?-?-?-?-?-?-?-?- Effaced St Visit Note 06/09/25 -?-?-?-?-?-?-?-?-?-?-?-?- 9w 0d 191 lb 2 oz (+2 oz) 127/82 -?-?-?-?-?-?-?-?-?-?-?-?- 179 -?-?-?-?-?-?-?-?-?-?-?-?- KW- CRL 5.12 con s with dates. accepts NIPT and carrier Menstrual History Last Menstrual Period: 04/07/25 Reported LMP: definite Normal amount/duration: No (heavier and longer than normal) Frequency in days: 28-30 On hormonal BC at conception: No hCG+: 05/10/25 Antepartum Record Genetic Screening: Congenital Heart Defect: Partner (heart murmur-resloved), Neural Tube Defect: Other, Hemoglobinopathy Or Carrier: Other, Cystic Fibrosis: Other, Chromosome Abnormality: Other, Marcos-Sachs: Other, Hemophilia: Other, Intellectual Disability/Autism: Other, Recurrent Loss/Stillbirth: Other, Other Structural Defect: Other, Other Genetic Disease: Other and Maternal Metabolic Disorder: Other Infection History: Live with someone with TB or Exposed to TB: No, Patient or Partner has history of Genital Herpes: No, Rash or Viral illness since last mentrual period: No, Prior GBS-Infected child: No, History of STD: No, HIV Infection: No, History of Hepatitis: No, Recent travel outside of [place]: No, Concern for hepatitis exposure: No, Varicella immune: Yes (immune-vaccinated) and Covid Vaccinated: No Medical History Medical History: Positive: Operations/hospitalizations (wisdom teeth, Lasik) andOther (obesity BMI 31.4) and Negative: Diabetes, Hypertension, Heart disease, Auto- immune disorder, Kidney disease/UTI, Neurologic/epilepsy, Psychiatric, Depression/ depression, Hepatitis/liver disease, Varicosities/phlebitis, Thyroid dysfunction, Trauma/domestic violence, History of blood transfusions, D (Rh) Sensitized (O+), Pulmonary (e.g.,TB,Asthma), Seasonal allergies, Drug/latex allergies/reactions, Breast, Business Transformation Analyst surgery, Anesthetic complications, History of abnormal pap, Uterine anomaly/meliton, Infertility, Anti-retroviral treatment and Relevant family history ACOG First Trimester First Trimester: Desire for , Alcohol, Tobacco Cessation, Illicit/Recreational Drug/Substance Use, Intimate Partner Violence, Barriers to care, Unstable Housing, Communication Barriers, Environmental/Work Hazards, Anticipated Course of Care, Toxoplasmosis Precations, Use of Any medications, Sexual activity, Exercise, Dental Care, Sauna/Hot tub use, Seat Belt use, Childbirth classes/Hospital facilities, , Travel, Indications for Ultrasound and Screening for Aneuploidy Second Trimester Second Trimester: Signs and Symptoms of Labor, Selecting a care provider, Reproductive Life Planning & Contreception, Care Planning, Depression/Anxiety and Intimate Partner Violence; Discussed Tobacco Cessation Third Trimester Third Trimester: Pain Management Plans, Labor support person(s), Immediate Larc, Signs and Symptoms of Preeclampsia, Feeding Yes , [place] Education and Family Medical Leave or Disability Forms ROS Const Reports system reviewed and no additional complaints, except as documented, Denies fatigue, Denies headache(s) and Denies lethargy ENT Denies headache(s) Card Reports system reviewed and no additional complaints, except as documented Resp Reports system reviewed and no additional complaints, except as documented GI Reports system reviewed and no additional complaints, except as documented, Denies abdominal pain, Denies constipation, Denies cramping, Denies diarrhea andDenies dyspepsia Reports system reviewed and no additional complaints, except as documented, Denies abnormal vaginal bleeding, Denies difficulty voiding, Denies dyspareunia and Denies dysuria Musc Reports system reviewed and no additional complaints, except as documented Skin/Breast Reports system reviewed and no additional complaints, except as documented Neuro Yes system reviewed and no additional complaints, except as documented and No headache(s) Psych Reports system reviewed and no additional complaints, except as documented, Denies anhedonia and Denies anxiety Endo Reports system reviewed and no additional complaints, except as documented and Denies fatigue Exam Const General: cooperative, healthy appearing and comfortable Neck Neck: normal visual inspection and full ROM Chest Chest palpation & inspection: normal inspection of the chest Breast inspection: normal inspection of the breasts and normal inspection of theaxillae Breast palpation: normal palpation of the breasts and normal palpation of the axillae Resp Effort & Inspection: normal respiratory effort and able to speak in complete sentences GI Inspection: normal to inspection Palpation: soft External Female Exam: normal external appearance and normal appearance of the urethra Urethra: normal appearance of the urethra Skin General: no rashes or lesions noted Neuro General: patient alert, patient awake and patient oriented x3 Extrem General: normal to inspection and full ROM Psych Appearance: grossly normal and well kempt Mental Status: mental status grossly normal Mood: congruent mood Affect: normal affect Speech and Movement: speech and movement normal Thought Process: normal Thought Content: normal Coding Level of Care Code OB Routine Diagnoses Supervision of normal Z34.90 9 weeks gestation of Z3A.09 Weeks of gestation: 9 weeks Obesity affecting O99.210 History of nicotine vaping Z87.891 Assessment and Plan Assessment and Plan (1) Supervision of normal : Status: Acute Comment: , VICKI 01/12/26, Will (2) : Status: Acute Qualifiers: Weeks of gestation: 9 weeks Qualified Code(s): Z3A.09 - 9 weeks gestation of Comment: elects NIPT with Gender, declines Carrier (3) Obesity affecting : Status: Acute (4) History of nicotine vaping: Status: Acute Comment: Quit 6months ago Comments Comments: Patient oriented to practice and discussed care expectations and screenings. ACOG book offered to patient. Discussed routine and specially indicated labs if needed- patient consents to testing. See problem list details for plan information. Optional screening including maternal carrier screenings, neural tube defect screening, genetic screening options including quad screen, nuchal translucency, sequential screening, and NIPT screening offered to patient and patient chose: NIPT and carrier 06/09/25 1553 <Electronically signed by Kenya pimentel CNM> Date _ Kenya Morrison [facility] Cosigner Signature: Date (if applicable) CC: ~ [facility] Work Phone: 1(429) 769-907908-08-2025 Chief complaint+Reason for visit Narrative * Chief Complaint Admit Date PNOB Vitals & Education June 02, 2025 12:51pm *NEW* NOB LMP 04/14, VICKI 01/12 2:58pm Reason for Visit Admit Date History of nicotine vaping June 09, 2025 2:58pm Obesity affecting June 09, 2025 2:58pm June 09, 2025 2: 58pm Supervision of normal May 262024 2:58pm [facility] Work Phone: 1(855) 853-469408-08-2025 Chief complaint+Reason for visit Narrative * Chief Complaint Admit Date PNOB Vitals & Education June 02, 2025 12:51pm *NEW* NOB LMP 04/14, VICKI 01/12 2:58pm 13 WK OB July 06, 2025 3:46pm Reason for Visit Admit Date History of nicotine vaping June 09, 2025 2:58pm Obesity affecting June 09, 2025 2:58pm June 09, 2025 2: 58pm Supervision of normal May 262024 2:58pm History of nicotine vaping June 3:46pm Obesity affecting July 062024 3:46pm July 06, 2025 3:46pm Supervision of normal Septembe 2024 3:46pm UTI (urinary tract infection) during pre gnancy July 06, 2025 3:46pm [facility] Work Phone: 1(197) 471-545308-08-2025 Chief complaint+Reason for visit Narrative * Chief Complaint Admit Date PNOB Vitals & Education June 02, 2025 12:51pm *NEW* NOB LMP 04/14, VICKI 01/12 2:58pm 13 WK OB July 06, 2025 3:46pm INT LAB ORDERS July 06, 2025 4:54pm Reason for Visit Admit Date History of nicotine vaping June 09, 2025 2:58pm Obesity affecting June 09, 2025 2:58pm June 09, 2025 2: 58pm Supervision of normal May 262024 2:58pm History of nicotine vaping June 3:46pm Obesity affecting July 062024 3:46pm July 06, 2025 3:46pm Supervision of normal [facility]2024 3:46pm UTI (urinary tract infection) during pre gnancy July 06, 2025 3:46pm [facility] Work Phone: 1([phone]) 447-840208-08-2025 Chief complaint+Reason for visit Narrative * Chief Complaint Admit Date PNOB Vitals & Education June 02, 2025 12:51pm *NEW* NOB LMP 04/14, VICKI 01/12 2:58pm 13 WK OB July 06, 2025 3:46pm INT LAB ORDERS July 06, 2025 4:54pm 17 WK OB August 03, 2025 3: 50pm Reason for Visit Admit Date History of nicotine vaping June 09, 2025 2:58pm Obesity affecting June 09, 2025 2:58pm June 09, 2025 2: 58pm Supervision of normal May 262024 2:58pm History of nicotine vaping June 3:46pm Obesity affecting July 062024 3:46pm July 06, 2025 3:46pm Supervision of normal [facility] 2024 3:46pm UTI (urinary tract infection) during pre gnancy July 06, 2025 3:46pm History of nicotine vaping August 03, 2025 3:50pm Obesity affecting August 03, 2025 3:50pm August 03, 2025 3: 50pm Supervision of normal August 03, 2025 3:50pm UTI (urinary tract infection) during pre gnancy August 03, 2025 3:50pm [facility] Work Phone: 1(568) 638-420006-26-2024 History of Present illness Narrative* Kelly Gay MD - 04/20/2024 11:45 AM EDT Subjective Patient ID: Handy Huddleston is a 23 y.o. female who presents for Med Refill (ADIPEX REFILL TODAY). HAS LOST MORE WT FEELS VERY GOOD AND HAPPY Med Refill Pertinent negatives include no abdominal pain, chest pain, chills, congestion, coughing, fever, headaches, joint swelling, nausea, numbness, rash or vomiting. Review of Systems Constitutional: Negative. Negative for chills and fever. HENT: Negative. Negative for congestion. Eyes: Negative. Negative for discharge. Respiratory: Negative. Negative for cough, shortness of breath and wheezing. Cardiovascular: Negative. Negative for chest pain, palpitations and leg swelling. Gastrointestinal: Negative. Negative for abdominal distention, abdominal pain, constipation, diarrhea, nausea and vomiting. Endocrine: Negative. Genitourinary: Negative. Negative for dysuria and urgency. Musculoskeletal: Negative. Negative for back pain, joint swelling and neck stiffness. Skin: Negative. Negative for rash. Allergic/Immunologic: Negative. Negative for immunocompromised state. Neurological: Negative. Negative for light-headedness, numbness and headaches. Hematological: Negative. Negative for adenopathy. Psychiatric/Behavioral: Negative. Negative for agitation, behavioral problems and confusion. All other systems reviewed and are negative. Objective Physical Exam Vitals reviewed. Constitutional: General: She is not in acute distress. Appearance: Normal appearance. HENT: Head: Normocephalic and atraumatic. Nose: Nose normal. Eyes: Conjunctiva/sclera: Conjunctivae normal. Pupils: Pupils are equal, round, and reactive to light. Neck: Vascular: No carotid bruit. Cardiovascular: Rate and Rhythm: Normal rate and regular rhythm. Pulses: Normal pulses. Heart sounds: No gallop. Pulmonary: Effort: Pulmonary effort is normal. No respiratory distress. Breath sounds: Normal breath sounds. No wheezing. Abdominal: General: Bowel sounds are normal. Palpations: Abdomen is soft. Tenderness: There is no abdominal tenderness. Musculoskeletal: General: Normal range of motion. Cervical back: Normal range of motion. No rigidity. Lymphadenopathy: Cervical: No cervical adenopathy. Skin: General: Skin is warm. Findings: No rash. Neurological: General: No focal deficit present. Mental Status: She is alert and oriented to person, place, and time. Psychiatric: Mood and Affect: Mood normal. Behavior: Behavior normal. BP 125/79 (BP Location: Right arm, Patient Position: Sitting) Pulse 91 Ht 1.651 m (5' 5) Wt 75.3 kg (166 lb) BMI 27.62 kg/m No results found for: CBCDIF, CMPLAS, PSA, LASA, HGBA1C Assessment/Plan Problem List Items Addressed This Visit None Visit Diagnoses Class 1 obesity due to excess calories without serious comorbidity with body mass index (BMI) of 31.0 to 31.9 in adult Relevant Medications phentermine (Adipex-P) 37.5 mg tablet OARRS HAS BEEN REVIEWED AND IS CONSISTENT WITH PRESCRIBED MEDICATIONS, CONSIDERED THE RISK OF ABUSE, DEPENDENCE, ADDICTION AND DIVERSION, MEDICATION IS FELT TO BE CLINICALLY APPROPRIATE ON THE DOCUMENTED DIAGNOSIS Pt is doing well , will continue adipex for more wt loss/maintenance Diet and exercise discussed documented in this [facility] Work Phone: 1(581) 998-913705-29-2024 History of Present illness Narrative* Kelly Gay MD - 03/23/2024 10:00 AM EDT Subjective Patient ID: Handy Huddleston is a 23 y.o. female who presents for Follow-up (1 month fu adipex discuss ultrasound, labs not done). Here for med refill Feels fine Adipex helped a lot Co difficulty sleeping Review of Systems Constitutional: Negative. Negative for chills and fever. HENT: Negative. Negative for congestion. Eyes: Negative. Negative for discharge. Respiratory: Negative. Negative for cough, shortness of breath and wheezing. Cardiovascular: Negative. Negative for chest pain, palpitations and leg swelling. Gastrointestinal: Negative. Negative for abdominal distention, abdominal pain, constipation, diarrhea, nausea and vomiting. Endocrine: Negative. Genitourinary: Negative. Negative for dysuria and urgency. Musculoskeletal: Negative. Negative for back pain, joint swelling and neck stiffness. Skin: Negative. Negative for rash. Allergic/Immunologic: Negative. Negative for immunocompromised state. Neurological: Negative. Negative for light-headedness, numbness and headaches. Hematological: Negative. Negative for adenopathy. Psychiatric/Behavioral: Positive for sleep disturbance. Negative for agitation, behavioral problemsand confusion. All other systems reviewed and are negative. Objective Physical Exam Vitals reviewed. Constitutional: General: She is not in acute distress. Appearance: Normal appearance. HENT: Head: Normocephalic and atraumatic. Nose: Nose normal. Eyes: Conjunctiva/sclera: Conjunctivae normal. Pupils: Pupils are equal, round, and reactive to light. Neck: Vascular: No carotid bruit. Cardiovascular: Rate and Rhythm: Normal rate and regular rhythm. Pulses: Normal pulses. Heart sounds: No gallop. Pulmonary: Effort: Pulmonary effort is normal. No respiratory distress. Breath sounds: Normal breath sounds. No wheezing. Abdominal: General: Bowel sounds are normal. Palpations: Abdomen is soft. Tenderness: There is no abdominal tenderness. Musculoskeletal: General: Normal range of motion. Cervical back: Normal range of motion. No rigidity. Lymphadenopathy: Cervical: No cervical adenopathy. Skin: General: Skin is warm. Findings: No rash. Neurological: General: No focal deficit present. Mental Status: She is alert and oriented to person, place, and time. Psychiatric: Mood and Affect: Mood normal. Behavior: Behavior normal. BP 120/86 (BP Location: Right arm, Patient Position: Sitting) Pulse 101 Ht 1.651 m (5' 5) Wt76.9 kg (169 lb 8 oz) BMI 28.21 kg/m No results found for: CBCDIF, CMPLAS, PSA, LASA, HGBA1C Assessment/Plan Problem List Items Addressed This Visit None Visit Diagnoses Drug-induced insomnia (Multi) - Primary Class 1 obesity due to excess calories without serious comorbidity with body mass index (BMI) of 31.0 to 31.9 in adult Relevant Medications phentermine (Adipex-P) 37.5 mg tablet To have the blood work and US Melatonin otc prn OARRS HAS BEEN REVIEWED AND IS CONSISTENT WITH PRESCRIBED MEDICATIONS, CONSIDERED THE RISK OF ABUSE, DEPENDENCE, ADDICTION AND DIVERSION, MEDICATION IS FELT TO BE CLINICALLY APPROPRIATE ON THE DOCUMENTED DIAGNOSIS Fu 1 mo with bw and US documented in this [facility] Work Phone: [phone] 494-490005-07-2024 History of Present illness Narrative* Roselyn Santos MD - 03/01/2024 11:00 AM EDT Subjective Patient ID: Handy Huddleston is a 23 y.o. female who presents for Illness (C/O LOSS OF VOICE FROM YELLING 1 WK AGO WITH SORE THROAT). HPI VIRTUAL VISIT SORE THROAT WITH LOSS OF VOICE / HOARSENESS X 1 WEEK WITH NONPRODUCTIVE COUGH. OTC TX DIDN'T HELP. LMP WAS 3 WEEKS AGO. Review of Systems Constitutional: Negative for chills and fever. HENT: Positive for sore throat. Negative for congestion, postnasal drip and rhinorrhea. LOSS OF VOICE. Eyes: Negative. Negative for visual disturbance. Respiratory: Positive for cough. Negative for shortness of breath and wheezing. Cardiovascular: Negative. Negative for chest pain, palpitations and leg swelling. Gastrointestinal: Negative. Negative for abdominal distention, abdominal pain, constipation, diarrhea, nausea and vomiting. Endocrine: Negative. Genitourinary: Negative for dysuria and urgency. Musculoskeletal: Negative. Negative for back pain. Skin: Negative. Negative for rash. Allergic/Immunologic: Negative for immunocompromised state. Neurological: Negative. Negative for dizziness, weakness, light-headedness and headaches. Psychiatric/Behavioral: Negative. Negative for agitation. Objective Physical Exam Constitutional: General: She is not in acute distress. Appearance: She is not ill-appearing, toxic-appearing or diaphoretic. Neurological: Mental Status: She is alert. Assessment/Plan 1. Acute laryngitis methylPREDNISolone (Medrol Dospak) 4 mg tablets amoxicillin (Amoxil) 500 mg capsule 2. Acute cough methylPREDNISolone (Medrol Dospak) 4 mg tablets amoxicillin (Amoxil) 500 mg capsule 3. Acute pharyngitis, unspecified etiology methylPREDNISolone (Medrol Dospak) 4 mg tablets amoxicillin (Amoxil) 500 mg capsule ADVISED TO Gargle with WARM SALTWATER. PT WAS INSTRUCTED TO INCREASE FLUID INTAKE ,TAKE TYLENOL 650 MG PO Q6H/PRN FOR PAIN OR FEVER AND TAKE ROBITUSSIN OTC 2 TSP Q 6H/PRN FOR COUGH. ADVISED TO ELEVATE THE HEAD OF THE BED FOR SLEEP AND TO SLEEP WITH WARM HUMIDIFIER. MDM 1) COMPLEXITY: 1 UNDIAGNOSED NEW PROBLEM WITH UNCERTAIN PROGNOSIS 2)DATA: TESTS INTERPRETED AND OR ORDERED, TOOK INDEPENDENT HISTORY OR RECORDS REVIEWED 3)RISK: MODERATE RISK DUE TO NATURE OF MEDICAL CONDITIONS/COMORBIDITY OR MEDICATIONS ORDERED OR SURGICAL OR PROCEDURE REFERRAL, . Has F/U. documented in this [facility] Work Phone: [phone]) 962-446205-01-2024 History of Present illness Narrative* Kelly Gay MD - 02/24/2024 11:15 AM EDT Subjective Patient ID: Handy Huddleston is a 23 y.o. female who presents for Follow-up (1 month US). HERE FOR FU LOST GOOD AMOUNT OFWT ADIPEX HELPING Review of Systems Constitutional: Negative. Negative for chills and fever. HENT: Negative. Negative for congestion. Eyes: Negative. Negative for discharge. Respiratory: Negative. Negative for cough, shortness of breath and wheezing. Cardiovascular: Negative. Negative for chest pain, palpitations and leg swelling. Gastrointestinal: Negative. Negative for abdominal distention, abdominal pain, constipation, diarrhea, nausea and vomiting. Endocrine: Negative. Genitourinary: Negative. Negative for dysuria and urgency. Musculoskeletal: Negative. Negative for back pain, joint swelling and neck stiffness. Skin: Negative. Negative for rash. Allergic/Immunologic: Negative. Negative for immunocompromised state. Neurological: Negative. Negative for light-headedness, numbness and headaches. Hematological: Negative. Negative for adenopathy. Psychiatric/Behavioral: Negative. Negative for agitation, behavioral problems and confusion. All other systems reviewed and are negative. Objective Physical Exam Vitals reviewed. Constitutional: General: She is not in acute distress. Appearance: Normal appearance. HENT: Head: Normocephalic and atraumatic. Nose: Nose normal. Eyes: Conjunctiva/sclera: Conjunctivae normal. Pupils: Pupils are equal, round, and reactive to light. Neck: Vascular: No carotid bruit. Cardiovascular: Rate and Rhythm: Normal rate and regular rhythm. Pulses: Normal pulses. Heart sounds: No gallop. Pulmonary: Effort: Pulmonary effort is normal. No respiratory distress. Breath sounds: Normal breath sounds. No wheezing. Abdominal: General: Bowel sounds are normal. Palpations: Abdomen is soft. Tenderness: There is no abdominal tenderness. Musculoskeletal: General: Normal range of motion. Cervical back: Normal range of motion. No rigidity. Lymphadenopathy: Cervical: No cervical adenopathy. Skin: General: Skin is warm. Findings: No rash. Neurological: General: No focal deficit present. Mental Status: She is alert and oriented to person, place, and time. Psychiatric: Mood and Affect: Mood normal. Behavior: Behavior normal. BP 118/82 (BP Location: Right arm, Patient Position: Sitting) Pulse 105 Wt 78 kg (172 lb) SpO2 96% BMI 28.62 kg/m No results found for: CBCDIF, CMPLAS, PSA, LASA, HGBA1C Assessment/Plan Problem List Items Addressed This Visit None Visit Diagnoses Class 1 obesity due to excess calories without serious comorbidity with body mass index (BMI) of 31.0 to 31.9 in adult - Primary Relevant Medications phentermine (Adipex-P) 37.5 mg tablet OARRS HAS BEEN REVIEWED AND IS CONSISTENT WITH PRESCRIBED MEDICATIONS, CONSIDERED THE RISK OF ABUSE, DEPENDENCE, ADDICTION AND DIVERSION, MEDICATION IS FELT TO BE CLINICALLY APPROPRIATE ON THE DOCUMENTED DIAGNOSIS Fu 1 mo [facility]: [phone]) 885-299203-19-2024 History of Present illness Narrative* Kelly Gay MD - 01/12/2024 9:15 AM EDT Subjective Patient ID: Handy Huddleston is a 23 y.o. female who presents for Follow-up (NEW PATIENT VISIT). WANTS TO DISCUSS WT LOSS DIET AND EXERCISE , HAS NOT BEEN VERY EFFECTIVE Review of Systems Constitutional: Negative. Negative for chills and fever. HENT: Negative. Negative for congestion. Eyes: Negative. Negative for discharge. Respiratory: Negative. Negative for cough, shortness of breath and wheezing. Cardiovascular: Negative. Negative for chest pain, palpitations and leg swelling. Gastrointestinal: Negative. Negative for abdominal distention, abdominal pain, constipation, diarrhea, nausea and vomiting. Endocrine: Negative. Genitourinary: Negative. Negative for dysuria and urgency. Musculoskeletal: Negative. Negative for back pain, joint swelling and neck stiffness. Skin: Negative. Negative for rash. Allergic/Immunologic: Negative. Negative for immunocompromised state. Neurological: Negative. Negative for light-headedness, numbness and headaches. Hematological: Negative. Negative for adenopathy. Psychiatric/Behavioral: Negative. Negative for agitation, behavioral problems and confusion. All other systems reviewed and are negative. Objective Physical Exam Vitals reviewed. Constitutional: General: She is not in acute distress. Appearance: Normal appearance. She is obese. HENT: Head: Normocephalic and atraumatic. Nose: Nose normal. Eyes: Conjunctiva/sclera: Conjunctivae normal. Pupils: Pupils are equal, round, and reactive to light. Neck: Vascular: No carotid bruit. Comments: THYROMEGALY Cardiovascular: Rate and Rhythm: Normal rate and regular rhythm. Pulses: Normal pulses. Heart sounds: No gallop. Pulmonary: Effort: Pulmonary effort is normal. No respiratory distress. Breath sounds: Normal breath sounds. No wheezing. Abdominal: General: Bowel sounds are normal. Palpations: Abdomen is soft. Tenderness: There is no abdominal tenderness. Musculoskeletal: General: Normal range of motion. Cervical back: Normal range of motion. No rigidity. Lymphadenopathy: Cervical: No cervical adenopathy. Skin: General: Skin is warm. Findings: No rash. Neurological: General: No focal deficit present. Mental Status: She is alert and oriented to person, place, and time. Psychiatric: Mood and Affect: Mood normal. Behavior: Behavior normal. BP 115/86 (BP Location: Left arm, Patient Position: Sitting) Pulse 89 Ht 1.651 m (5' 5) Wt 85.3 kg (188 lb) LMP 12/24/2023 (Exact Date) BMI 31.28 kg/m No results found for: CBCDIF, CMPLAS, PSA, LASA, HGBA1C Assessment/Plan Problem List Items Addressed This Visit None Visit Diagnoses Class 1 obesity due to excess calories without serious comorbidity with body mass index (BMI) of 31.0 to 31.9 in adult - Primary Relevant Orders CBC and Auto Differential Comprehensive Metabolic Panel Lipid Panel TSH with reflex to Free T4 if abnormal Opiate/Opioid/Benzo Prescription Compliance Thyromegaly Relevant Orders CBC and Auto Differential Comprehensive Metabolic Panel Lipid Panel TSH with reflex to Free T4 if abnormal US thyroid Medication management OARRS HAS BEEN REVIEWED AND IS CONSISTENT WITH PRESCRIBED MEDICATIONS, CONSIDERED THE RISK OF ABUSE, DEPENDENCE, ADDICTION AND DIVERSION, MEDICATION IS FELT TO BE CLINICALLY APPROPRIATE ON THE DOCUMENTED DIAGNOSIS WILL RELEASE ADIPEX IF UTOX NEGATIVE WILL CONT WITH DIET AND EXERCISE MDM 1) COMPLEXITY: 1 UNDIAGNOSED NEW PROBLEM WITH UNCERTAIN PROGNOSIS 2)DATA: TESTS INTERPRETED AND OR ORDERED, TOOK INDEPENDENT HISTORY OR RECORDS REVIEWED 3)RISK: MODERATE RISK DUE TO NATURE OF MEDICAL CONDITIONS/COMORBIDITY OR MEDICATIONS ORDERED OR SURGICAL OR PROCEDURE REFERRAL, . FU 1 MO BW , US [facility]: Chief complaint+Reason for visit Narrative* Chief Complaint Admit Date PNOB Vitals & Education June 02, 2025 12:51pm [facility] Work Phone: Evaluation note* Diagnosis Class 1 obesity due to excess calories without serious comorbidity with body mass index (BMI) of 31.0 to 31.9 in adult- Primary Thyromegaly Goiter, unspecified Medication management documented in this encounter [facility] Work Phone: Evaluation note* Diagnosis Thyromegaly Goiter, unspecified documented in this encounter [facility] Work Phone: Evaluation note* Diagnosis Class 1 obesity due to excess calories without serious comorbidity with body mass index (BMI) of 31.0 to 31.9 in adult- Primary documented in this encounter [facility] Work Phone: Evaluation note* Diagnosis Acute laryngitis- Primary Acute cough Acute pharyngitis, unspecified etiology documented in this encounter [facility] Work Phone: Evaluation note* Diagnosis Drug-induced insomnia (Multi)- Primary Class 1 obesity due to excess calories without serious comorbidity with body mass index (BMI) of 31.0 to 31.9 in adult documented in this encounter [facility] Work Phone: Evaluation note* Diagnosis Class 1 obesity due to excess calories without serious comorbidity with body mass index (BMI) of 31.0 to 31.9 in adult documented in this encounter [facility] Work Phone: Evaluation noteNo assessment information available [facility] Work Phone: Evaluation note* Diagnosis Onset Date Resolution Status Admit Date History of nicotine vaping acute June 09, 2025 2:58pm Obesity affecting acute June 09, 2025 2:58pm acute June 09, 2 025 2:58pm Supervision of normal acut e June 09, 2025 2:58pm [facility] Work Phone: Reason for referral (narrative)No reason for referral [facility] Work [facility]: Summary Purpose Family History No Family History Records FoundNo Family History Records FoundNo Family History Records FoundNo Family History Records FoundNo Family History Records Found Advance Directives No Advanced Directives Records FoundNo Advanced Directives Records FoundNo Advanced Directives Records FoundNo Advanced Directives Records FoundNo Advanced Directives Records Found Reason for Referral Specialty Diagnoses / Procedures Referred By Neli stephenson Referred To Contact Radiology Diagnoses Thyromegaly Procedures US thyroid Kelly Gay MD [address] [place] [address] Referral ID Status Reason Start Date Expiration Date Visits Requested Visits Authorized [id number] Authorized Perform Procedure 01/12/2024 01/11/2025 1 1 Additional Source Comments INFORMATION SOURCE (unrecogn ized section and content) DATE CREATED AUTHOR 04/09/2020 [facility] DATE CREATED AUTHOR AUTHOR'S ORGANIZ ATION 01/17/2024 [facility] DATE CREATED AUTHOR AUTHOR'S ORGANIZ ATION 05/28/2024 [facility] DATE CREATED AUTHOR AUTHOR'S ORGANIZ ATION 08/31/2025 [facility] DATE CREATED AUTHOR AUTHOR'S ORGANIZ ATION 09/01/2025 [facility] Reason for Visit (unrecogniz ed section and content) Reason Comments Follow-up NEW PATIENT VISIT Specialty Diagnoses / Procedures Referred By Neli stephenson Referred To Contact Radiology Diagnoses Thyromegaly Procedures US thyroid Tavallaee, Kelly M, MD [address] [place] [address] Referral ID Status Reason Start Date Expiration Date Visits Requested Visits Authorized [id number] Authorized Perform Procedure 01/12/2024 01/11/2025 1 1 Reason Comments Follow-up 1 month US Reason Comments Illness C/O LOSS OF VOICE FR OM YELLING 1 WK AGO WITH SORE THROAT Reason Comments Follow-up 1 month fu adipex di scuss ultrasound, labs not done Reason Comments Med Refill ADIPEX REFILL TODAY Care Teams (unrecognized sec tion and content) Precipitate Washer Relationship Specialty Start Date End Date Kelly Gay MD [address] [place] [address] PCP - General Internal Medicine 01/12/24 Precipitate Washer Relationship Specialty Start Date End Date Kelly Gay MD [address] [place] [address] PCP - General Internal Medicine 01/12/24 Precipitate Washer Relationship Specialty Start Date End Date Kelly Gay MD [address] [place] [address] PCP - General Internal Medicine 01/12/24 Precipitate Washer Relationship Specialty Start Date End Date Kelly Gay MD [address] [place] [address] PCP - General Internal Medicine 01/12/24 Precipitate Washer Relationship Specialty Start Date End Date Kelly Gay MD [address] [place] [address] PCP - General Internal Medicine 01/12/24 Team Status: Inactive Member Role/Relationship Status Dates Kenya Morrison CNM Attending Provider Active S tart: June 02, 2025 End: June 02, 2025 Team Status: Inactive Member Role/Relationship Status Dates Kenya Morrison CNM Attending Provider Active S tart: June 09, 2025 End: June 09, 2025 Team Status: Inactive Member Role/Relationship Status Dates Kenya Morrison CNM Attending Provider Active S tart: June 09, 2025 End: June 09, 2025 Team Status: Inactive Member Role/Relationship Status Dates Dr. Mayra Geiger MD Attending Provider Active Start: July 06, 2025 End: July 06, 2025 Team Status: Inactive Member Role/Relationship Status Dates Kenya Morrison CNM Attending physician Active Start: June 02, 2025 End: June 02, 2025 Team Status: Inactive Member Role/Relationship Status Dates Kenya Morrison CNM Attending physician Active Start: June 09, 2025 End: June 09, 2025 Team Status: Inactive Member Role/Relationship Status Dates Kenya Morrison CNM Attending physician Active Start: June 09, 2025 End: June 09, 2025 Team Status: Inactive Member Role/Relationship Status Dates Dr. Mayra Geiger MD Attending physician Active Start: July 06, 2025 End: July 06, 2025 Team Status: Inactive Member Role/Relationship Status Dates Kenya Morrison CNM Attending physician Active Start: July 06, 2025 End: July 06, 2025 Kenya Morrison CNM Referring Provider Active S tart: July 06, 2025 End: July 06, 2025 Team Status: Inactive Member Role/Relationship Status Dates Dr. Mercedes Fairbanks DO Attending physician Acti ve Start: August 03, 2025 End: August 03, 2025 Goals (unrecognized section and content) Type Care Experience Labor Preferences-CB /BF classes: []labor support person: []labor intervention preferences: []pain management options preferred: []cut cord/dad catch: []: []PP control planned: []discussed possible routes of delivery and associated risks: []special requests: [] FOR RECORDS PERTAINING TO PATIENTS WHO ARE OR HAVE BEEN ENROLLED IN A CHEMICAL DEPENDENCY/SUBSTANCEABUSE PROGRAM, SOME INFORMATION MAY BE OMITTED. This clinical summary was aggregated from multiple sources. Caution should be exercised in using it in the provision of clinical care. This summary normalizes information from multiple sources, and as a consequence, information in this document may materially change the coding, format and clinical context of patient data. In addition, data may be omitted in some cases. CLINICAL DECISIONS SHOULD BE BASED ON THE PRIMARY CLINICAL RECORDS. [employer] [facility] provides no warranty or guarantee of the accuracy or completeness of information in this document.
[2025-10-20 09:56] LABS: Hematocrit 30.9 % (37-47); Hemoglobin 10.5 g/dL (12.0-15.0); Immature Granulocytes Count 0.110 X10^3/uL (0.0-0.0); Mean Corp Hgb Conc 34.0 g/dL (32-36); Mean Corpuscular Volume 94.5 fL (81-99); Mean Platelet Vol. 9.4 fl (6.2-12.0); NRBC Flagged by Analyzer 0 % (0-5); Platelet Count 211 K/mm3 (150-450); RBC Distribution Width CV 13.7 % (11.6-14.6); RBC Distribution Width SD 46.9 fl (35.1-43.9); Red Blood Count 3.27 M/mm3 (4.2-5.4); White Blood Count 9.0 K/mm3 (4.4-11.0)
[2025-10-20 10:59] LABS: Glucose Challenge Gest 1H 50g 129 mg/dL (70-140); HIV Nonreactive (Nonreactive); Syphilis Antibodies Nonreactive (Nonreactive)
== END | disposition home or self-care (01) ==
LOC: LAB 09:29
PROVIDERS: Obstetrics & Gynecology; PCP Internal Medicine; Referring Provider Advanced Practice Midwife; Visit Provider Advanced Practice Midwife
DX: Z34.90 Encounter for supervision of normal pregnancy, unspecified, unspecified trimester (principal)
CPT/HCPCS: 36415; 82950; 85025; 86703; 86780